=== PATIENT | male | born 1995 | race African-American/Black ===

== ENCOUNTER 2018-11-28 23:05 | Inpatient (IN) ==
[2018-11-28] MEDS ORDERED: MAGNESIUM SULFATE 1GM / D5W BAG IV ONE (23:09)
[2018-11-28] MEDS ORDERED: methylPREDNISolone 125 MG/2 ML VIAL ONE (23:09)
[2018-11-28] MEDS ORDERED: DOPamine 400MG / 250ML D5W IV ONE (23:15)
[2018-11-28] MEDS ORDERED: ALBUT/IPRATROP 3MG/0.5MG NEB 3 ML VIAL ONE (23:18)
[2018-11-28] MEDS ORDERED: PROPOFOL IV EMULSION 10 MG/ML 100 ML VIAL IV ONE (23:25)
[2018-11-28] MEDS ORDERED: RAPID SEQUENCE INDUCTION BAG ONE (23:26)
[2018-11-28] MEDS ORDERED: SODIUM CHLORIDE 0.9% 1000ML 1,000 ML IV SCH (23:30)
[2018-11-28 23:34] LABS: iSTAT Arterial Blood Gas HCO3 29 meg/L (19-24); iSTAT Arterial Blood Gas pCO2 > 115 mmHg (35-46); iSTAT Arterial Blood Gas pH 6.98 (7.35-7.45); iSTAT Carbon Dioxide 33 mEq/l (24-31); iSTAT Hematocrit 38 % (42-52); iSTAT Hemoglobin 12.9 g/dl (14.0-18.0); iSTAT Sodium 144 mEq/L (135-144)
[2018-11-28 23:38] LABS: Hematocrit (blood only) 40.9 % (42-52); Hemoglobin 13.4 g/dL (14.0-18.0); Mean Corpuscular Hgb Conc 32.8 g/dL (32-36); Mean Corpuscular Volume 88.3 fL (80-100); Mean Platelet Volume 10.9 fL (7.4-10.4); Platelet Count 166 K/uL (130-400); RDW Standard Deviation 42.1 fL (36.4-46.3); Red Blood Count 4.63 M/uL (4.7-6.1); White Blood Count 11.24 K/uL (4.8-10.8)
[2018-11-28] MEDS ORDERED: POTASSIUM CHLORIDE 10 MEQ / 100ML WTR IV ONE (23:45)
[2018-11-28 23:50] LABS: iSTAT Creatinine 2.1 mg/dl (0.6-1.3); iSTAT Hemoglobin 12.9 g/dl (14.0-18.0); iSTAT Ionized Calcium 1.7 mmol/l (1.12-1.32); iSTAT Potassium 3.3 mEq/L (3.3-5.0)
[2018-11-28 23:52] LABS: INR 1.3 (0.9-1.1); Partial Thromboplastin Ratio 0.8; Partial Thromboplastin Time 20.6 Seconds (21.0-31.0); Prothrombin Time 12.7 Seconds (9.0-12.0)
[2018-11-29 00:13] LABS: Alanine Aminotransferase 29 U/L (12-78); Albumin Globulin Ratio 1.1 (0.9-2); Alkaline Phosphatase 63 U/L (45-117); Aspartate Aminotransferase 57 U/L (15-37); BUN Creatinine Ratio 9.3 (10-20); Bilirubin,Total 0.5 mg/dl (0.2-1); Blood Urea Nitrogen 20 mg/dl (7-18); Calcium 13.5 mg/dl (8.5-10.1); Carbon Dioxide 25 mmol/L (21-32); Chloride 99 mmol/L (98-107); Creatine Kinase 470 U/L (39-308); Est GFR (African American) 49.1; Est GFR (Non-African American) 42.4; Globulin 2.7 gm/dl (2.5-4.0); Glucose 241 mg/dl (70-99); Magnesium 3.8 mg/dl (1.8-2.4); Potassium 3.5 mmol/L (3.5-5.1); Sodium 142 mmol/L (136-145); Total Protein 5.7 gm/dl (6.4-8.2); Troponin I < 0.015 ng/ml (0-0.045)
[2018-11-29 00:23] LABS: Amphetamines+Metham, Urine Neg (Neg); Barbiturates, Urine Neg (Neg); Benzodiazepine, Urine Neg (Neg); Cocaine, Urine Neg (Neg); MDMA (Ecstacy), Urine Neg (Neg); Methadone, Urine Neg (Neg); Opiate, Urine Neg (Neg); Phencyclidine, Urine Neg (Neg)
[2018-11-29 00:45] LABS: Basophils # (auto) 0.05 K/uL (0-0.2); Basophils % (auto) 0.4 %; Echinocytes 1+; Eosinophils # (auto) 0.51 K/uL (0-0.5); Eosinophils % (auto) 4.5 %; Immature Granulocytes # (auto) 0.31 K/uL (0.00-0.02); Immature Granulocytes % (auto) 2.8 %; Lymphocytes # (auto) 6.34 K/uL (1.2-3.4); Lymphocytes % (auto) 56.4 %; Monocytes # (auto) 0.75 K/uL (0.11-0.59); Monocytes % (auto) 6.7 %; Neutrophils # (auto) 3.28 K/uL (1.4-6.5); Neutrophils % (auto) 29.2 %
[2018-11-29] MEDS ORDERED: LORazepam 2 MG/ML VIAL (IM USE) ONE (00:49)
--- NOTE | 2018-11-29 01:22 | Procedure Note ---
Procedure Note Date of Service November 29, 2018 Procedure: RIGHT Femoral Central Line Cooling Catheter Placement Attending: Dr. Mera APC: Marc Hernandez PA-C Indication: Central Drug Administration, Poor Venous Access, Multiple Lab Draws Necessary, etc. Anesthesia: Lidocaine 1% Patient is status post cardiac arrest in the field and meets criteria for therapeutic hypothermia protocol. Patient with relatively labile blood pressures and need for venous cooling catheter placement in emergent fashion. No family present on arrival. Because of these indications, emergent consent was applied given the need for access for multiple medications and for a therapeutic hypothermia. A time-out was completed verifying correct patient, procedure, site, positioning, and implants(s) or special equipment if applicable. Patients RIGHT Groin was cleansed and draped in the typical sterile fashion using Chloraprep. The Femoral Vein and Femoral Artery were identified using ultrasound. The superficial tissue was anesthetized using 3.0 mL of 1% lidocaine without epinephrine under direct visualization with the ultrasound. After adequate anesthetization was achieved, the Femoral Vein was cannulated under direct ultrasound guidance using an introducer needle on a syringe. Good venous blood return was maintained prior to removal of syringe from introducer needle. Using Seldinger Technique, a guide wire was advanced through the introducer needle without resistance. The introducer needle was removed and ultrasound images were obtained of the guide wire within the Femoral Vein and saved to the patients medical record. A small incision was made in penetrating fashion at the guide wire insertion site utilizing an 11 blade scalpel. The dilator was advanced to the vessel without resistance. The dilator was exchanged for the Zoll 9.3 [place] triple lumen cooling catheter which was advanced into the vessel without resistance. The guide wire was removed intact from the catheter without issue. Claves were placed on each catheter tip with confirmation of good blood flow from each lumen. Each port was easily flushed with sterile saline. The catheter was placed at 35 cm and sutured in place. BioPatch was applied to the catheter and a sterile Tegaderm dressing was applied over the catheter with careful attention to sterility. Patient tolerated procedure well. No immediate complications were met. Images obtained are saved for permanent record Procedural Ultrasound Guidance: Procedure Date: 11/29/2018 Indication: Venous Access, Post arrest, Cooling catheter needed for therapeutic hypothermia. Attending: Dr. Mera APC: Marc Hernandez PA-C Artery AND Vein visualized: YES Compressible Vein: YES Guidewire or Short Catheter seen in vein prior to dilation: YES Line confirmed in Vein with ultrasound: YES Images obtained are saved for permanent record. Coding
[2018-11-29] MEDS ORDERED: ACETAMINOPHEN 1000 MG/100 ML IV IV PRN (01:35)
[2018-11-29] MEDS ORDERED: PROPOFOL 1,000 MG/100 ML VIAL IV PRN (01:35)
[2018-11-29] MEDS ORDERED: ICU PROTOCOL FOR HYPERGLYCEMIA PRN (01:35)
[2018-11-29] MEDS ORDERED: SODIUM CHLORIDE 0.9% 1000ML 1,000 ML IV SCH (01:35)
[2018-11-29] MEDS ORDERED: ALBUT/IPRATROP 3MG/0.5MG NEB 3 ML VIAL NEB PRN (01:35)
[2018-11-29] MEDS ORDERED: ONDANSETRON INJ 2 MG/ML 2 ML VIAL IV PRN (01:35)
[2018-11-29] MEDS ORDERED: MIDAZOLAM HCL 125 MG/250 ML BAG IV PRN (01:39)
[2018-11-29] MEDS ORDERED: fentaNYL DRIP 1,250 MCG/250 ML BAG IV PRN (01:39)
[2018-11-29] MEDS ORDERED: ARTIFICIAL TEARS OP OINT 3.5 GM TUBE OP PRN (01:39)
[2018-11-29] MEDS ORDERED: MEPERIDINE HCL 25 MG/ML CARP IV PRN (01:39)
--- NOTE | 2018-11-29 01:39 | Procedure Note ---
Procedure Note Date of Service November 29, 2018 Procedure: RIGHT Femoral Arterial Line Placement Attending: Dr. Mera APC: Marc Hernandez PA-C Indication: Monitoring on Pressors Anesthesia: Lidocaine 1% Patient presented status post cardiac arrest in the field. Requires arterial line to proceed with therapeutic hypothermia protocol. Patient with hypotension on arrival with labile blood pressures status post resuscitation. Requires multiple frequent blood draws as well as multiple frequent assessment of ABGs. Emergent consent implied without presence of POA at the time. A time-out was completed verifying correct patient, procedure, site, positioning, and implant(s) or special equipment if applicable. Patients RIGHT Groin was prepped and draped in the usual sterile fashion. Ultrasound guidance was used to aid in RIGHT Femoral Vein access. Brisk return of arterial blood was noted. Utilizing Seldinger technique, a guidewire was A 20g Arrow arterial line was advanced into the RIGHT femoral artery without resistance. Ultrasound confirms appropriate position in the artery. Arterial catheter was threaded over the guidewire and advanced into the vessel without resistance. The guide wire was removed intact from the catheter without issue. Arterial pulsatile blood was noted. The catheter was capped with primed a-line tubing. Pulsatile flow noted in the catheter. Good waveform was observed. Confirmation of placement with ultrasound. Images saved to medical record. BioPatch was applied to the area and sterile dressing was placed. The patient tolerated the procedure well. No immediate complications appreciated. Blood Loss: Minimal Complications: None Procedural Ultrasound Guidance: Procedure Date: 11/29/2018 Indication: Therapeutic Hypothermia, Close BP monitoring, Frequent Labs, Frequent ABGs. Attending: Dr. Mera APC: Marc Hernandez PA-C Artery Identified: YES Line confirmed in Artery with ultrasound: YES Complications: NONE Patient tolerated procedure: WELL Coding CPT Codes Tubes, Drains, and Vasc Access - Tubes, Drains, and Vasc Access: Insertion Catheter, Artery ([id number]) Tubes, Drains, and Vasc Access - Tubes, Drains, and Vasc Access: Ultrasonic Guide For Needle Placement ([id number])
--- NOTE | 2018-11-29 02:08 | History & Physical Report ---
Date of Service November 29, 2018 Assessment & Plan (1) Admitted to intensive care unit: Admitted to intensive care unit/status post successful resuscitation post cardiac arrest/acute respiratory failure with hypoxia and hypercapnia/on mechanically assisted ventilation- Patient was intubated by EMS in the field. Coded by ED team upon arrival. Admit to the ICU for further treatment. Consult remote broadcast technician Dr. Mera. Present on Admission?: Yes (2) Cardiac arrest with successful resuscitation: Cardiac arrest with successful resuscitation/acute respiratory failure with hypoxia and hypercapnia- In the field, patient was found to be in PEA, was intubated, received epinephrine 1 mg IV x3. Patient was found to be in severe respiratory acidosis: Initial ABG was pH 6.98, PCO2 greater than 115, PO2 313. Follow-up ABG showed a pH 7.27, PCO2 45 and PO2 in the 200s on vent settings AC 26/500/50% and PEEP of 5. Patient received several dosages of bicarbonate pushes, 3 L of normal saline, calcium IV, magnesium IV. Present on Admission?: Yes (3) Acute respiratory failure with hypoxia and hypercapnia: Patient was also given Solu-Medrol 25 mg IV in the ED, and will be continued on sign Medrol 60 mg IV every 6 hours. He received a continuous albuterol nebulizer while in the ED. Duonebs available every 2 hours as needed. Chest x-ray did not show any signs of aspiration pneumonia, and did show appropriate position of endotracheal tube. Present on Admission?: Yes (4) Acute kidney injury: Creatinine on POC labs 2.1, with confirmatory labs pending. Continue rehydration with normal saline. Present on Admission?: Yes (5) Hyperglycemia: POC glucose 247, with confirmatory pending. Check hemoglobin A1c Present on Admission?: Yes (6) Anemia: Hemoglobin upon admission 13.0. Will heme test stools, follow serially Present on Admission?: Yes (7) Asthma: Only no medical history is that of asthma and need for albuterol HFA that was used PRN. every 2 hours when necessary. Present on Admission?: Yes (8) On mechanically assisted ventilation: As noted above Present on Admission?: Yes History of Present Illness Chief Complaint: The patient is a 23-year-old male who reportedly was entering [facility], when he collapsed, and CPR was begun by police, until EMS arrived. Primary Care Provider: NO PCP The patient is a 23-year-old male with a past medical history of asthma, who had collapsed outside the entrance to [facility] earlier this evening. CPR was reportedly begun by police, until EMS arrived. EMS reports that the patient was found to be and PEA rhythm, he was intubated in the field, received 3 rounds of epinephrine 1 mg IV while undergoing CPR, did not receive any shocks, and was transported to the emergency department with advanced notice for [employer] [place]. Upon arrival in the ED, the patient was noted to have a pulse and blood pressure of 77/50'. He was coded at that time, underwent appropriate sequencing of medications, laboratories and imaging, and mechanical ventilation. He was then transported to the CT scanner, with CT of head, chest, abdomen and pelvis were all read as normal by [facility]. The patient was then transported to the ICU for ongoing care. The patient did not have return of consciousness, but did have ROSC. Allergies Allergy/AdvReac Type Severity Reaction Status Date / Time Unable to Assess Allergy Unverified 11/28/18 23:16 Home Medications Home Medications Medication Instructions Recorded Confirmed Type albuterol sulfate 1 - 2 puff INH DIRECTED PRN 11/28/18 11/28/18 History Past Med/Surg History Medical History No pertinent past medical history Family History Other No pertinent family history in first degree relatives Social History Preferred Language: Vietnamese Communication Ability: Unrespons. Emergency Veterinary Technician Required: No Beliefs That Will Affect Care: None Current Living Situation: Other Current Living Situation Comment: Apartment with [employer] Other Information That Helps Us Care for You: No Feels Safe at Home: Yes Smoking Status: Former smoker Do You Dip or Chew Tobacco: No Second Hand Exposure: No Tobacco Cessation Education Requested by Patient: No Hx Alcohol Use: Yes Hx Substance Use: No Review of Systems Review of Systems: Review of systems not able to be done to the patient's unresponsive state Physical Exam Physical Exam: The patient is unresponsive well developed and well nourished, normocephalic and atraumatic, intubated, bagged upon arrival, and then placed on ventilator. HEENT--PERRL, EOMI, mucous membranes and oropharynx dry. Neck--No JVD. No bruits. Thyroid normal, trachea midline, no adenopathy. Heart--tachycardic. Normal S1 and S2. No murmurs, rubs or gallops. Lungs--decreased breath sounds throughout. Abdomen--normal bowel sounds and soft. Nontender. Nondistended. Extremities--no cyanosis or clubbing. No edema. There are good distal pulses b/l. Dermatologic--normal skin turgor, normal color, no abnormal lymph nodes, no rash. Neurologic--cranial nerves II through XII grossly intact. Rheumatologic--limited exam Psychiatric--unresponsive and intubated. Results & Data Vital Signs (Past 12 Hours) Vital Signs Temp Pulse Pulse Resp BP BP Pulse Ox 11/29/18 00:25 85 160/100 H 98 11/29/18 00:24 84 22 151/108 H 99 11/29/18 00:23 86 20 151/108 H 99 11/29/18 00:21 85 160/106 H 99 11/29/18 00:19 84 165/107 H 98 11/29/18 00:17 85 157/110 H 98 11/29/18 00:15 85 161/107 H 98 11/29/18 00:13 85 164/107 H 98 11/29/18 00:11 85 181/108 H 98 11/29/18 00:09 86 173/110 H 98 11/29/18 00:07 99 11/28/18 23:50 20 11/28/18 23:46 105 H 182/109 H 99 11/28/18 23:42 109 H 190/119 H 99 11/28/18 23:39 105 H 153/123 H 99 11/28/18 23:38 115 H 198/133 H 100 11/28/18 23:36 119 H 208/124 H 99 11/28/18 23:34 122 H 185/130 H 96 11/28/18 23:32 125 H 227/126 H 100 11/28/18 23:30 127 H 209/133 H 100 11/28/18 23:28 131 H 221/142 H 100 11/28/18 23:27 132 H 198/117 H 100 11/28/18 23:24 132 H 205/124 H 99 11/28/18 23:22 129 H 195/119 H 99 11/28/18 23:20 137 H 181/104 H 98 11/28/18 23:19 142 H 212/116 H 98 11/28/18 23:18 147 H 219/120 H 99 11/28/18 23:16 114 H 59/33 L 11/28/18 23:15 131 H 28 H 95 11/28/18 23:12 126 H 41/28 L 11/28/18 23:09 103 H 65/36 L 93 11/28/18 23:05 97.0 F L 108 H 18 65/36 L 93 Laboratory Results Laboratory Results WBC 11.24 K/uL (4.8-10.8) H 11/28/18 23:23 RBC 4.63 M/uL (4.7-6.1) L 11/28/18 23:23 Hgb 13.4 g/dL (14.0-18.0) L 11/28/18 23:23 POC Hgb 12.9 g/dl (14.0-18.0) L 11/28/18 23:34 Hct 40.9 % (42-52) L 11/28/18 23:23 POC Hct 38 % (42-52) L 11/28/18 23:34 MCV 88.3 fL (80-100) 11/28/18 23:23 MCH 28.9 pg (25-34) 11/28/18 23:23 MCHC 32.8 g/dL (32-36) 11/28/18 23:23 RDW Std Deviation 42.1 fL (36.4-46.3) 11/28/18 23:23 RDW Coeff of Bobbi 13.0 % (11.5-14.5) 11/28/18 23:23 Plt Count 166 K/uL (130-400) 11/28/18 23:23 MPV 10.9 fL (7.4-10.4) H 11/28/18 23:23 Immature Gran % (Auto) 2.8 % 11/28/18 23:23 Neut % (Auto) 29.2 % 11/28/18 23:23 Lymph % (Auto) 56.4 % 11/28/18 23:23 Gila % (Auto) 6.7 % 11/28/18 23:23 Eos % (Auto) 4.5 % 11/28/18 23:23 Baso % (Auto) 0.4 % 11/28/18 23:23 Immature Gran # (Auto) 0.31 K/uL (0.00-0.02) H 11/28/18 23:23 Neut # (Auto) 3.28 K/uL (1.4-6.5) 11/28/18 23:23 Lymph # (Auto) 6.34 K/uL (1.2-3.4) H 11/28/18 23:23 Gila # (Auto) 0.75 K/uL (0.11-0.59) H 11/28/18 23:23 Eos # (Auto) 0.51 K/uL (0-0.5) H 11/28/18 23:23 Baso # (Auto) 0.05 K/uL (0-0.2) 11/28/18 23:23 Echinocytes 1+ 11/28/18 23:23 PT 12.7 Seconds (9.0-12.0) H 11/28/18 23:23 INR 1.3 (0.9-1.1) H 11/28/18 23:23 APTT 20.6 Seconds (21.0-31.0) L 11/28/18 23:23 PTT Ratio 0.8 11/28/18 23:23 POC pH 6.98 (7.35-7.45) L* 11/28/18 23:17 POC pCO2 > 115 mmHg (35-46) H 11/28/18 23:17 POC pO2 313 mmHg (80-95) H 11/28/18 23:17 POC HCO3 29 asuncion/L (19-24) H 11/28/18 23:17 POC Total CO2 33 mEq/l (24-31) H 11/28/18 23:17 POC Base Excess -3.0 asuncion/L (-9-1.8) 11/28/18 23:17 POC Sodium 139 mEq/L (135-144) 11/28/18 23:34 Sodium 142 mmol/L (136-145) 11/28/18 23:23 POC Potassium 3.3 mEq/L (3.3-5.0) 11/28/18 23:34 Potassium 3.5 mmol/L (3.5-5.1) 11/28/18 23:23 POC Chloride 98 mEq/L (101-112) L 11/28/18 23:34 Chloride 99 mmol/L (98-107) 11/28/18 23:23 Carbon Dioxide 25 mmol/L (21-32) 11/28/18 23:23 POC Total CO2 25 mEq/l (24-31) 11/28/18 23:34 Anion Gap 18.0 (3-11) H 11/28/18 23:23 POC Anion Gap 21.0 mmol/L (16-25) 11/28/18 23:34 POC BUN 21 mg/dl (7-18) H 11/28/18 23:34 BUN 20 mg/dl (7-18) H 11/28/18 23:23 Creatinine 2.14 mg/dl (0.6-1.4) H 11/28/18 23:23 POC Creatinine 2.1 mg/dl (0.6-1.3) H 11/28/18 23:34 Est Cr Clr Drug Dosing Not Reportable 11/28/18 23:23 Est GFR ( Amer) 49.1 11/28/18 23:23 Est GFR (Non-Af Amer) 42.4 11/28/18 23:23 BUN/Creatinine Ratio 9.3 (10-20) L 11/28/18 23:23 Glucose 241 mg/dl (70-99) H 11/28/18 23:23 POC Glucose (other) 247 mg/dl (70-99) H 11/28/18 23:34 Lactate 12.0 mmol/L (0.4-2.0) H* 11/28/18 23:23 Calcium 13.5 mg/dl (8.5-10.1) H* 11/28/18 23:23 POC Ioniz Calcium Sherif 1.70 mmol/l (1.12-1.32) H* 11/28/18 23:34 Ionized Calcium 0.99 mmol/L (1.12-1.32) L 11/29/18 00:43 Magnesium 3.8 mg/dl (1.8-2.4) H 11/28/18 23:23 Total Bilirubin 0.5 mg/dl (0.2-1) 11/28/18 23:23 AST 57 U/L (15-37) H 11/28/18 23:23 ALT 29 U/L (12-78) 11/28/18 23:23 Alkaline Phosphatase 63 U/L (45-117) 11/28/18 23:23 Total Creatine Kinase 470 U/L (39-308) H 11/28/18 23:23 Troponin I < 0.015 ng/ml (0-0.045) 11/28/18 23:23 Total Protein 5.7 gm/dl (6.4-8.2) L 11/28/18 23:23 Albumin 3.0 gm/dl (3.4-5.0) L 11/28/18 23:23 Globulin 2.7 gm/dl (2.5-4.0) 11/28/18 23:23 Albumin/Globulin Ratio 1.1 (0.9-2) 11/28/18 23:23 Lipase 61 U/L (73-393) L 11/28/18 23:23 Urine Opiates Screen Neg (Neg) 11/28/18 23:50 Ur Methadone, Qual Neg (Neg) 11/28/18 23:50 Urine Barbiturates Neg (Neg) 11/28/18 23:50 Ur Phencyclidine (PCP) Neg (Neg) 11/28/18 23:50 U Amphetamin/Meth Scrn Neg (Neg) 11/28/18 23:50 MDMA (Ecstasy) Screen Neg (Neg) 11/28/18 23:50 U Benzodiazepines Scrn Neg (Neg) 11/28/18 23:50 Ur Cocaine Metabolite Neg (Neg) 11/28/18 23:50 U Marijuana (THC) Screen Neg (Neg) 11/28/18 23:50 Ethyl Alcohol mg/dL 27.0 mg/dl (0-3) H 11/29/18 00:43 Blood Type O Positive 11/28/18 23:23 Antibody Screen NEGATIVE 11/28/18 23:23 Diagnostic Findings [facility] Patient: MANI HOPE (Male) Age: 23 MR #: [id number] Status: ER Date: 11/29/18 00:07 Slices: 67 History: S/P CARDIAC ARREST, MAYBE DRUG INDUCED Priors: Tech: Jerman Larios @ [phone] Exams: CT HEAD Accession Numbers: [id number] Preliminary Findings Only See Final Report For Complete Findings CT HEAD: No ICH, mass effect or edema. No evidence of acute cortical stroke. No midline shift or hydrocephalus. Visualized sinuses show mild scattered mucosal thickening and mastoid air cells are clear. Radiologist: Aayush Salas M.D. Study ready at 00:09 and initial results transmitted at 00:41 *This report constitutes a preliminary interpretation only. Non-acute findings felt to be unrelated to the clinical presentation may not be discussed in this report. The study will be interpreted and a final report will be generated by the local Radiologist the following shift. To reach the hospital radiology department call [phone]. If a discrepancy is found between the preliminary and final interpretations of this study, please notify us via our Client Portal at [email or web address], under QA Exams. You can also fax this report with a description of the discrepancy, or include the final report, to our daytime fax number [phone]. If faxing, please indicate the severity of discrepancy using one of the following categories: [ ] 1 - Agree/Informational [ ] 2 - Unlikely to Affect Management [ ] 3 - Possible Eventual Change of Management [ ] 4 - Probable Immediate Change of Management For all other patient related information, please fax us at [phone]. [facility] Patient: MANI HOPE (Male) Age: 23 MR #: [id number] Status: ER Date: 11/29/18 00:07 Slices: [phone] History: S/P CARDIAC ARREST, MAYBE DRUG INDUCED Priors: Tech: Jerman Larios @ [phone] Exams: CT ABDOMEN & PELVIS Without Contrast Accession Numbers: [id number] Preliminary Findings Only See Final Report For Complete Findings CT ABDOMEN & PELVIS Without Contrast: Fluid within nondistended loops of small bowel and within stomach without bowel wall thickening or surrounding inflammation can be normal or can be seen with gastroenteritis in the right clinical setting. No appendicitis, inflammatory changes of bowel or bowel obstruction. No free fluid. No free air. Aorta, liver, spleen, pancreas, gallbladder, and kidneys are unremarkable. Tip of transesophageal catheter is at the midportion of the stomach. Radiologist: Aayush Salas M.D. Study ready at 00:09 and initial results transmitted at 00:46 *This report constitutes a preliminary interpretation only. Non-acute findings felt to be unrelated to the clinical presentation may not be discussed in this report. The study will be interpreted and a final report will be generated by the local Radiologist the following shift. To reach the hospital radiology department call [phone]. If a discrepancy is found between the preliminary and final interpretations of this study, please notify us via our Client Portal at [email or web address], under QA Exams. You can also fax this report with a description of the discrepancy, or include the final report, to our daytime fax number [phone]. If faxing, please indicate the severity of discrepancy using one of the following categories: [ ] 1 - Agree/Informational [ ] 2 - Unlikely to Affect Management [ ] 3 - Possible Eventual Change of Management [ ] 4 - Probable Immediate Change of Management For all other patient related information, please fax us at [phone]. [id number] [facility] Patient: MANI HOPE (Male) Age: 23 MR #: [id number] Status: ER Date: 11/29/18 00:08 Slices: 454 History: S/P CARDIAC ARREST, MAYBE DRUG INDUCED Priors: Tech: Jerman Larios @ [phone] Exams: CT CHEST Without Contrast Accession Numbers: [id number] Preliminary Findings Only See Final Report For Complete Findings CT CHEST Without Contrast: Transesophageal catheter tip is at the midportion of the stomach. No pleural effusion or pneumothorax. No hilar or mediastinal enlargement. No cardiomegaly or pericardial effusion. No other acute or inflammatory disease. Radiologist: Aayush Salas M.D. Study ready at 00:10 and initial results transmitted at 00:50 *This report constitutes a preliminary interpretation only. Non-acute findings felt to be unrelated to the clinical presentation may not be discussed in this report. The study will be interpreted and a final report will be generated by the local Radiologist the following shift. To reach the hospital radiology department call [phone]. If a discrepancy is found between the preliminary and final interpretations of this study, please notify us via our Client Portal at [email or web address], under QA Exams. You can also fax this report with a description of the discrepancy, or include the final report, to our daytime fax number [phone]. If faxing, please indicate the severity of discrepancy using one of the following categories: [ ] 1 - Agree/Informational [ ] 2 - Unlikely to Affect Management [ ] 3 - Possible Eventual Change of Management [ ] 4 - Probable Immediate Change of Management For all other patient related information, please fax us at [phone]. Code Status & VTE Plan Code Status Full code VTE Prophylaxis Plan VTE Prophylaxis will be ordered: Yes Critical Care Time Critical Care Time: Yes Total Critical Care Time: 50 Total critical care time was 50 minutes PG Care Time/CCT Total # of Minutes Spent Total Time Spent with Patient: Total time spent is greater than 50% in coordination of care (as documented) at patient's floor/unit and/or counseling patient: Critical Care Time: Yes Total Critical Care Time: 50
[2018-11-29 02:09] LABS: Basophils # (auto) 0.03 K/uL (0-0.2); Basophils % (auto) 0.2 %; Eosinophils # (auto) 0.12 K/uL (0-0.5); Eosinophils % (auto) 0.7 %; Hematocrit (blood only) 38.5 % (42-52); Immature Granulocytes # (auto) 0.25 K/uL (0.00-0.02); Immature Granulocytes % (auto) 1.6 %; Lymphocytes # (auto) 1.91 K/uL (1.2-3.4); Lymphocytes % (auto) 11.9 %; Mean Corpuscular Hgb Conc 33.8 g/dL (32-36); Mean Platelet Volume 10.3 fL (7.4-10.4); Monocytes # (auto) 0.65 K/uL (0.11-0.59); Neutrophils # (auto) 13.15 K/uL (1.4-6.5); Neutrophils % (auto) 81.6 %; Platelet Count 185 K/uL (130-400); RDW Standard Deviation 40.2 fL (36.4-46.3); Red Blood Count 4.53 M/uL (4.7-6.1); White Blood Count 16.11 K/uL (4.8-10.8)
[2018-11-29 02:13] LABS: Base Excess ABG -11.9 mEq/L (-9-1.8); HCO3 ABG 15 mmol/L (19-24); Oxygen Saturation ABG 99.2 % (90-95); PCO2 ABG 35 mmHg (35-46); PO2 ABG 171 mm/Hg (80-95); pH ABG 7.23 (7.35-7.45)
[2018-11-29 02:15] LABS: Allen Test Pos (Pos)
[2018-11-29 02:21] LABS: INR 1.2 (0.9-1.1); Partial Thromboplastin Ratio 0.9; Partial Thromboplastin Time 24.8 Seconds (21.0-31.0); Prothrombin Time 11.9 Seconds (9.0-12.0)
[2018-11-29 02:32] LABS: Albumin Level 3.2 gm/dl (3.4-5.0); Alkaline Phosphatase 73 U/L (45-117); BUN Creatinine Ratio 13.3 (10-20); Bilirubin,Total 0.6 mg/dl (0.2-1); Blood Urea Nitrogen 19 mg/dl (7-18); Calcium 7.2 mg/dl (8.5-10.1); Carbon Dioxide 17 mmol/L (21-32); Chloride 109 mmol/L (98-107); Creatinine Clr Calc Pharmacy 93.4 ml/min; Glucose 154 mg/dl (70-99); Magnesium 2.1 mg/dl (1.8-2.4); Phosphorus 5.4 mg/dl (2.5-4.9); Potassium 3.2 mmol/L (3.5-5.1); Sodium 142 mmol/L (136-145)
--- NOTE | 2018-11-29 02:36 | Critical Care Consultation ---
Date of Consultation November 29, 2018 Assessment & Plan (1) Admitted to intensive care unit: Reason Critically Ill: 23-year-old male status post cardiac arrest with return of spontaneous circulation achieved in the field meeting criteria for therapeutic hypothermia. NEURO - * CAM ICU: Unable to assess secondary to current status. * Goals of care at this time to focus on neurological status. Therapeutic hypothermia in place. * Patient does elicit concerning exam findings with occasional decorticate posturing with painful stimulation. With some mild clonus of the bilateral upper extremities. Does appear to move all 4 extremities equally. * CT of the head negative. * Loaded with Keppra. Will treat with Versed with occasional boluses in an effort to minimize any seizure activity. * EEG ordered. CARDIAC/VASCULAR - * Cardiac arrest with return of spontaneous circulation: * Concerning for possible respiratory arrest resulting in cardiac arrest. * Found to be in PEA on EMS arrival. Received 3 rounds of epinephrine and high-quality CPR. * Currently not requiring vasoactive support. Would consider Levophed or epinephrine as first-line therapy in the recently stunned myocardium. * No known history of underlying cardiomyopathy, specifically hypertrophic cardiomyopathy. * Question excessive use of beta 1 agonist inciting possible dysrhythmia resulting in arrest. * Initial EKG without significant findings or concerns for infarction. * A.m. echocardiogram ordered. * Therapeutic hypothermia protocol in place. * Consult cardiology. * EKG: NSR@93bpm. Slight diffuse ST elevations noted of questionable significance. QTc 499. Will repeat/trend. * Monitor on telemetry. RESPIRATORY - * Acute respiratory failure with hypoxia and hypercapnia: * Initially with difficulty maintaining saturations and with difficulty bagging in the field. * Was with O2 saturations in the 50s which did improve significantly with albuterol treatment and IV steroids. * Question inciting asthma exacerbation with respiratory failure and subsequent cardiac arrest. * Will continue with IV steroids. * Albuterol as needed. * Remains intubated. * Serial ABGs. Adjustments as needed. GI/NUTRITION - * N.p.o. at this time * Prophylaxis: Ranitidine RENAL/LYTES - * Acute renal failure: * Likely secondary to hypoperfusion in the immediate postarrest patient. * Aggressive IV fluid resuscitation. * Improvement in creatinine and urine output at this time. * Hypokalemia: * Replace as needed. * High anion gap metabolic acidosis. * Has improved w/ decrease in serum Lactate. * Will continue to trend. * Less likely from other sources. * IVF: Normosol@125mL/hr - * No concerns * Carr in place - Strict I&Os. ENDO - * No h/o DM or Thyroid Dz * BSGs per unit protocol. ISS --> gtt per unit policy. HEME - * Stable H&H ID - * No concerns for infectious contribution at this time. * Trend fever curve. LINES/IV ACCESS - * PIVs x2 * RIGHT Femoral Triple Lumen Cooling Catheter * RIGHT Femoral A-line * ET Tube * Carr DVT PROPHYLAXIS - * Heparin * SCDs I have personally spent 90 minutes of critical care time in the direct management of this patient. This is a life/limb threatening event. This includes time spent evaluating patient, direct bedside care, chart review, placing orders, interpretation of diagnostic studies, discussion with consultants, patient, and family members, as well as other required patient management activities. This time is exclusive of all separately billable procedures, and teaching time and separate from and in addition to any other critical care service time. Thank you for allowing us to participate in the care of this patient. Please refer to my attending physician's documentation for any further recommendations. (2) Cardiac arrest with successful resuscitation: (3) Acute respiratory failure with hypoxia and hypercapnia: (4) ARF (acute renal failure): (5) Asthma: Supervising Physician Co-Signing Physician Notes The case discussed verbally with the team, I did not see the patient or evaluated him physically as the patient was life flighted to [facility]. History of Present Illness Attending Physician: Kvng Tellez MD HISTORY OF PRESENT ILLNESS LIMITED TO PATIENT'S CURRENT STATE OF EXTREMIS. Patient is a 23-year-old male brought to the emergency department via EMS status post cardiac arrest in the field. Apparently, the patient was standing in line at a local bar when he was complaining of shortness of breath. Police and EMS were summoned. Upon arrival, police did initially intervene and with pulse checks, he was found to be asystolic. He rested just before EMS arrived. Chest compressions were initiated. Upon assessment, the patient was found to be in PEA. Chest compressions were resumed and the patient was intubated. He received 3 rounds of epinephrine with return of spontaneous circulation. After intubation, patient's O2 saturations were found to be in the 50s. He was apparently tough to bag with little air movement. By the time he arrived in the emergency department, his O2 saturations had improved to the low 90s. While in the emergency department, the patient was found to be hypotensive with systolic blood pressures in the 70s. He received 1 round of IV epinephrine as well as calcium and bicarbonate. He was found to have a mixed respiratory and pulmonary acidosis. He initially was with concerns of acute renal failure with a creatinine greater than 2. His chest x-ray demonstrated no acute findings. He received Solu-Medrol and DuoNeb treatments as well. His O2 saturations improved greatly. Patient underwent emergent CT of the head, chest, and abdomen/pelvis. No acute intracranial findings were appreciated. RIGHT groin CVL and A-line were placed with the intent for initiation of therapeutic hypothermia. Upon arrival in the ICU, the patient's friends arrived. Mother had given consent for them to provide historical information and to receive information regarding his current status. She had spoken with emergency department case packer via phone. Friends confirm that he had been complaining of shortness of breath for some time. He had been using a rescue inhaler quite frequently. Another friend reports that she was with him today and he had been complaining of shortness of breath and using his albuterol inhaler multiple times. She did not think anything of it as this was not unusual for him. Per friends, he does drink socially, but does not use recreational drugs. Police did find pills of concern for recreational illicit drugs. When I did ask the female friend, she reports that "I can explain that." She reports that while he is not use drugs himself for "at least 2 years", he did have "Tabatha" as well as ecstasy for which he was intending to sell that evening. She is adamant that he did not use drugs himself. Allergies Allergy/AdvReac Type Severity Reaction Status Date / Time No Known Allergies Allergy Unverified 11/29/18 06:53 Home Medications Home Medications Medication Instructions Recorded Confirmed Type albuterol sulfate 1 - 2 puff INH DIRECTED PRN 11/28/18 11/28/18 History Patient History Medical History No pertinent past medical history Family History Other No pertinent family history in first degree relatives Social History Preferred Language: Romanian Communication Ability: Unrespons. Beliefs That Will Affect Care: None Current Living Situation: Other Current Living Situation Comment: Apartment with colleauges Feels Safe at Home: Yes Smoking Status: Former smoker Second Hand Exposure: No Hx Alcohol Use: Yes Hx Substance Use: No Review of Systems Review of Systems: Unobtainable due to cognitive status, Unobtainable due to e ndotracheal tube and Unobtainable due to reduced consciousness Physical Exam Physical Exam: VITAL SIGNS - Vital signs and nursing notes were reviewed. GENERAL - 23-year-old male appearing his stated age. Intubated. SKIN - Without rashes. HEAD - NC/AT. EYES - Pupils small and sluggish bilaterally. Sclera anicteric. Scleral edema noted. EARS - No deformities of external structures noted on gross examination bilaterally. NOSE - Midline and without cyanosis. No epistaxis or purulent drainage noted. MOUTH/OROPHARYNX - ET Tube in place. Without perioral cyanosis. Buccal mucosa pink and moist and without leukoplakia. NECK - Neck with FROM. Supple to palpation. No nuchal rigidity. LUNGS - Chest wall symmetric without accessory muscle use, intercostals retractions, or central cyanosis. Normal vesicular breath sounds CTA B/L. No wheezes, rales, or rhonchi appreciated. CARDIAC - RRR with S1/S2. No murmur, rubs, or gallops appreciated. ABDOMEN - Abdominal contour flat without pulsations or visible masses. BS normoactive all four quadrants. No tenderness, palpable masses, hepatosplenomegaly, or ascites noted. EXTREMITIES - No clubbing or peripheral cyanosis. No pretibial edema present. +3/5 radial and dorsalis pedis pulses palpated throughout. NEUROLOGIC -patient with mild clonus in the bilateral upper extremities. Does elicit decorticate-like posturing with sternal rub. Intermittent suckling of the ET Tube appreciated. No other focal neurological deficits appreciated. Results & Data Vital Signs (Past 12 Hours) Vital Signs Temp Pulse Pulse Resp BP BP Pulse Ox 11/29/18 01:20 93 H 20 97 11/29/18 00:41 84 20 144/101 H 100 06/28/19 00:39 85 20 152/96 H 99 11/29/18 00:35 83 20 147/96 H 99 11/29/18 00:31 83 20 152/98 H 100 11/29/18 00:27 83 20 158/99 H 98 11/29/18 00:25 85 160/100 H 98 11/29/18 00:24 84 22 151/108 H 99 11/29/18 00:23 86 20 151/108 H 99 11/29/18 00:21 85 160/106 H 99 11/29/18 00:19 84 165/107 H 98 11/29/18 00:17 85 157/110 H 98 11/29/18 00:15 85 161/107 H 98 11/29/18 00:13 85 164/107 H 98 11/29/18 00:11 85 181/108 H 98 11/29/18 00:09 86 173/110 H 98 11/29/18 00:07 99 11/28/18 23:50 20 11/28/18 23:46 105 H 182/109 H 99 11/28/18 23:42 109 H 190/119 H 99 11/28/18 23:39 105 H 153/123 H 99 11/28/18 23:38 115 H 198/133 H 100 11/28/18 23:36 119 H 208/124 H 99 11/28/18 23:34 122 H 185/130 H 96 11/28/18 23:32 125 H 227/126 H 100 11/28/18 23:30 127 H 209/133 H 100 11/28/18 23:28 131 H 221/142 H 100 11/28/18 23:27 132 H 198/117 H 100 11/28/18 23:24 132 H 205/124 H 99 11/28/18 23:22 129 H 195/119 H 99 11/28/18 23:20 137 H 181/104 H 98 11/28/18 23:19 142 H 212/116 H 98 11/28/18 23:18 147 H 219/120 H 99 11/28/18 23:16 114 H 59/33 L 11/28/18 23:15 131 H 28 H 95 11/28/18 23:12 126 H 41/28 L 11/28/18 23:09 103 H 65/36 L 93 11/28/18 23:05 36.1 C L 108 H 18 65/36 L 93 PG Care Time/CCT Critical Care Time: Yes Total Critical Care Time: 90
[2018-11-29] MEDS ORDERED: NOREPINEPHRINE BIT INJ 8 MG in DEXTROSE 5% 500 ML IV PRN (02:37)
[2018-11-29 02:40] LABS: Alanine Aminotransferase 38 U/L (12-78); Albumin Globulin Ratio 1.2 (0.9-2); Aspartate Aminotransferase 88 U/L (15-37); Creatine Kinase MB 9.3 ng/ml (0.5-3.6); Globulin 2.7 gm/dl (2.5-4.0); Total Protein 5.9 gm/dl (6.4-8.2)
[2018-11-29] MEDS ORDERED: POTASSIUM CHLORIDE / WTR 20 MEQ/100 ML PLCT IV ONE (03:13)
[2018-11-29] MEDS ORDERED: NORMOSOL-R 1,000 ML IV SCH (04:00)
[2018-11-29 05:50] LABS: Basophils # (auto) 0.01 K/uL (0-0.2); Basophils % (auto) 0.1 %; Eosinophils # (auto) 0.01 K/uL (0-0.5); Eosinophils % (auto) 0.1 %; Hematocrit (blood only) 39.4 % (42-52); Hemoglobin 13.3 g/dL (14.0-18.0); Immature Granulocytes # (auto) 0.05 K/uL (0.00-0.02); Immature Granulocytes % (auto) 0.4 %; Lymphocytes # (auto) 0.68 K/uL (1.2-3.4); Lymphocytes % (auto) 5.8 %; Mean Corpuscular Hgb Conc 33.8 g/dL (32-36); Mean Corpuscular Volume 83.8 fL (80-100); Monocytes # (auto) 0.38 K/uL (0.11-0.59); Monocytes % (auto) 3.2 %; Neutrophils # (auto) 10.61 K/uL (1.4-6.5); Neutrophils % (auto) 90.4 %; Platelet Count 147 K/uL (130-400); RDW Standard Deviation 39.6 fL (36.4-46.3); White Blood Count 11.74 K/uL (4.8-10.8)
[2018-11-29 05:55] LABS: Base Excess ABG -5.1 mEq/L (-9-1.8); HCO3 ABG 21 mmol/L (19-24); Oxygen Saturation ABG 98.7 % (90-95); PCO2 ABG 42 mmHg (35-46); PO2 ABG 132 mm/Hg (80-95); pH ABG 7.32 (7.35-7.45)
[2018-11-29 06:00] LABS: Estimated Average Glucose 120 mg/dl; Hemoglobin A1C 5.8 % (4.5-5.6)
[2018-11-29] MEDS ORDERED: methylPREDNISolone 60 MG in SYRINGE 0 ML IV SCH (06:00)
[2018-11-29 06:05] LABS: Allen Test Pos (Pos)
[2018-11-29 06:15] LABS: INR 1.3 (0.9-1.1); Partial Thromboplastin Time 25.9 Seconds (21.0-31.0)
--- NOTE | 2018-11-29 06:19 | Ultrasound Report ---
US venous doppler LE BI HISTORY: Pain. Edema. eval dvt COMPARISON STUDY: None. FINDINGS: There is normal compressibility, flow, and augmentation within the bilateral lower extremit y deep venous systems. IMPRESSION: No DVT within the right or left lower extremity. The above report was generated using voice recognition software. It may contain grammatical, syntax or spelling errors. Electronically signed by: Emmett Hooper M.D. 11/29/2018 6:18 AM
--- NOTE | 2018-11-29 06:37 | XRay Report ---
XR chest 1V portable CLINICAL HISTORY: Chest Pain COMPARISON STUDY: No previous studies for comparison. FINDINGS: The tip of the endotracheal tube is 4.4 cm above the bernie. Lung volumes are normal. Lungs are clear. There is no pneumothorax or pleural effusion. Cardiac size is normal. Mediastinal contour s are normal. There is no evidence for pulmonary edema. IMPRESSION: 1. Tip of endotracheal tube 4.4 cm above the bernie. 2. No acute cardiopulmonary findings. Electronically signed by: Sohan Haro M.D. 11/29/2018 6:36 AM
[2018-11-29 06:46] LABS: BUN Creatinine Ratio 15.3 (10-20); Calcium 6.8 mg/dl (8.5-10.1); Creatinine Clr Calc Pharmacy 91.5 ml/min; Est GFR (African American) 90.6; Est GFR (Non-African American) 78.2; Magnesium 1.8 mg/dl (1.8-2.4); Phosphorus 3.2 mg/dl (2.5-4.9); Potassium 3.4 mmol/L (3.5-5.1)
--- NOTE | 2018-11-29 06:58 | CT Scan Report ---
CT chest wo con CLINICAL HISTORY: 23 years-old Male presenting with Pt c/o cardiac arrest, possibly drug-induced. TECHNIQUE: Multidetector CT imaging of the chest was performed without the use of intravenous contras t. IV contrast: None. One or more dose lowering techniques were used consistent with the principles o f ALARA (as low as reasonably achievable), including automatic exposure control, mA or kV adjustment to individual patient size, and/or use of iterative reconstruction. COMPARISON: Chest x-ray from earlier today. CT DOSE (mGy.cm): The estimated cumulative dose is 1272.23. FINDINGS: Nick Setter topogram: Unremarkable. Image quality is degraded by positioning of the arms at the sides. This only mildly negatively affect s diagnostic sensitivity of the exam. Soft tissues: Endotracheal tube terminates in the lower thoracic trachea. A nasogastric tube descends below the diaphragm terminating beyond the [id number]. No axillary, supraclavicular, or mediastin al lymphadenopathy. Evaluation of the lilo limited without intravenous contrast. Normal aorta. Normal heart size. No pericardial or pleural effusion. Esophageal distention with gas. Upper abdomen normal . Lungs and airways: No pneumothorax. Minimal debris in the lower trachea and mainstem bronchi orifices . Mild diffuse upper lobe and more significant moderate to severe lower lobe bronchial wall thickenin g. Subsegmental endobronchial debris in the lower lobes. Pulmonary arteries are not significantly enl arged relative to adjacent bronchi. No interlobular septal thickening. No focal infiltrate or nodule. Musculoskeletal: Normal osseous structures. IMPRESSION: Image quality is degraded by positioning of the arms at the sides. This only mildly negatively affect s diagnostic sensitivity of the exam. 1. Extensive bronchial wall thickening most severe in the lower lobes with subsegmental endobronchia l debris. This could suggest aspiration or reactive airway change in the setting of inhalational inju ry. No focal consolidation/infiltrate. 2. Appropriately positioned tubes. Electronically signed by: Rodrigo Tierney M.D. 11/29/2018 6:56 AM
--- NOTE | 2018-11-29 07:00 | CT Scan Report ---
CT OF THE HEAD WITHOUT CONTRAST CLINICAL HISTORY: Pt c/o cardiac arrest COMPARISON STUDY: No previous studies for comparison. TECHNIQUE: Helical axial images of the head were obtained without IV contrast. Automated exposure con trol was utilized for the study. A dose lowering technique was utilized adhering to the principles o f ALARA. FINDINGS: No acute intracranial hemorrhage, midline shift or mass effect is present. This exam is mod erately compromised by motion artifact. There is fullness at the level of the foramen magnum. There a re no extra-axial collections. There is apparent sulcal effacement. Ngo-white differentiation is pre sent but appears somewhat diminished. There are no findings to suggest acute dural sinus thrombosis o r acute territorial infarct. There is no calvarial fracture. Endotracheal and nasogastric tubes are i althea. IMPRESSION: 1. No acute intracranial hemorrhage. 2. Sulcal effacement, fullness at the level the foramen magnum and partial loss of ngo-white differe ntiation which raise the possibility of cerebral edema seen in the setting of hypoxic-injury brain in jury. Discussed with Marc Hernandez at time of dictation. Electronically signed by: Sohan Haro M.D. 11/29/2018 6:59 AM
[2018-11-29] MEDS ORDERED: PERFLUTREN LIPID MICROSPHERE (DEFINITY) IV ONE (07:01)
--- NOTE | 2018-11-29 07:05 | CT Scan Report ---
CT OF THE ABDOMEN AND PELVIS WITHOUT CONTRAST CLINICAL HISTORY: Cardiac arrest. COMPARISON STUDY: No previous studies for comparison. TECHNIQUE: Axial images of the abdomen and pelvis were obtained without IV contrast. Images were revi ewed in the axial, sagittal, and coronal planes. Automated exposure control was utilized for the arian dy. A dose lowering technique was utilized adhering to the principles of ALARA. FINDINGS: Please note that the chest CT will be reported separately. No pneumatosis, free air or port al venous gas is present. Tip of nasogastric tube is within the body of the stomach. Evaluation of th e abdomen and pelvis is suboptimal on this unenhanced exam. A Carr balloon is present within the baylee dder. There is a rectal catheter. There is no evidence for a bowel obstruction. Small bowel is mildly dilated and fluid-filled. No transition point is identified. Unenhanced images of the liver, spleen, adrenal glands, kidneys and pancreas are normal. There is no biliary or pancreatic ductal dilatation . There is no free fluid. No lymphadenopathy is identified. IMPRESSION: 1. Mildly dilated fluid-filled small bowel without transition point identified. The findings are nons pecific but could be seen in the setting of an enteritis. A bowel obstruction is considered less like ly. 2. No pneumatosis, free air or portal venous gas. 3. Exam compromised given the absence of IV contrast and motion artifact. Electronically signed by: Sohan Haro M.D. 11/29/2018 7:03 AM
--- NOTE | 2018-11-29 07:27 | Family Medicine Progress Note ---
Date of Service November 29, 2018 Assessment & Plan (1) Admitted to intensive care unit: (2) Cardiac arrest with successful resuscitation: (3) Acute respiratory failure with hypoxia and hypercapnia: (4) ARF (acute renal failure): (5) Asthma: Results & Data Vital Signs (Past 12 Hours) Vital Signs Temp Temp Temp Pulse Pulse Resp BP 11/29/18 06:00 32 C L 32 C L 57 L 18 11/29/18 05:00 32 C L 32 C L 64 18 11/29/18 04:30 18 11/29/18 04:05 68 20 11/29/18 04:00 32.1 C L 32.1 C L 73 20 11/29/18 03:00 32 C L 32 C L 73 20 11/29/18 02:00 34 C L 33 C L 33 C L 83 95 H 11/29/18 01:35 93 H 11/29/18 01:20 93 H 20 11/29/18 01:15 34 C L 34 C L 95 H 11/29/18 00:41 84 20 11/29/18 00:39 85 20 11/29/18 00:35 83 20 11/29/18 00:31 83 20 11/29/18 00:27 83 20 11/29/18 00:25 85 160/100 H 11/29/18 00:24 84 22 11/29/18 00:23 86 20 151/108 H 11/29/18 00:21 85 160/106 H 11/29/18 00:19 84 165/107 H 11/29/18 00:17 85 157/110 H 11/29/18 00:15 85 161/107 H 11/29/18 00:13 85 164/107 H 11/29/18 00:11 85 181/108 H 11/29/18 00:09 86 173/110 H 11/29/18 00:07 11/28/18 23:50 20 11/28/18 23:46 105 H 182/109 H 11/28/18 23:42 109 H 190/119 H 11/28/18 23:39 105 H 153/123 H 11/28/18 23:38 115 H 198/133 H 11/28/18 23:36 119 H 208/124 H 11/28/18 23:34 122 H 185/130 H 11/28/18 23:32 125 H 227/126 H 11/28/18 23:30 127 H 209/133 H 11/28/18 23:28 131 H 221/142 H 11/28/18 23:27 132 H 198/117 H 11/28/18 23:24 132 H 205/124 H 11/28/18 23:22 129 H 195/119 H 11/28/18 23:20 137 H 181/104 H 11/28/18 23:19 142 H 212/116 H 11/28/18 23:18 147 H 219/120 H 11/28/18 23:16 114 H 59/33 L 11/28/18 23:15 131 H 28 H 11/28/18 23:12 126 H 41/28 L 11/28/18 23:09 103 H 65/36 L 11/28/18 23:05 36.1 C L 108 H 18 65/36 L BP BP Pulse Ox Pulse Ox 11/29/18 06:00 145/69 H 122/70 100 11/29/18 05:00 125/70 116/66 100 11/29/18 04:30 11/29/18 04:05 100 11/29/18 04:00 141/85 H 131/74 100 11/29/18 03:00 128/67 114/64 100 11/29/18 02:00 132/74 160/99 H 100 11/29/18 01:35 100 11/29/18 01:20 97 11/29/18 01:15 168/83 H 160/99 H 100 11/29/18 00:41 144/101 H 100 11/29/18 00:39 152/96 H 99 11/29/18 00:35 147/96 H 99 11/29/18 00:31 152/98 H 100 11/29/18 00:27 158/99 H 98 11/29/18 00:25 98 11/29/18 00:24 151/108 H 99 11/29/18 00:23 99 11/29/18 00:21 99 11/29/18 00:19 98 11/29/18 00:17 98 11/29/18 00:15 98 11/29/18 00:13 98 11/29/18 00:11 98 11/29/18 00:09 98 11/29/18 00:07 99 11/28/18 23:50 11/28/18 23:46 99 11/28/18 23:42 99 11/28/18 23:39 99 11/28/18 23:38 100 11/28/18 23:36 99 11/28/18 23:34 96 11/28/18 23:32 100 11/28/18 23:30 100 11/28/18 23:28 100 11/28/18 23:27 100 11/28/18 23:24 99 11/28/18 23:22 99 11/28/18 23:20 98 11/28/18 23:19 98 11/28/18 23:18 99 11/28/18 23:16 11/28/18 23:15 95 11/28/18 23:12 11/28/18 23:09 93 11/28/18 23:05 93 PG Care Time/CCT Total # of Minutes Spent Total Time Spent with Patient: Total time spent is greater than 50% in coordination of care (as documented) at patient's floor/unit and/or counseling patient:
--- NOTE | 2018-11-29 07:32 | XRay Report ---
XR chest 1V portable CLINICAL HISTORY: 23 years-old Male presenting with s/p arrest. TECHNIQUE: Portable upright AP view of the chest was obtained. COMPARISON: 11/28/2018. FINDINGS: Endotracheal tube position in the midthoracic trachea. Nasogastric tube descends below the diaphragm, side hole within the gastric lumen. A catheter projects over the inferior cavoatrial junction likely within the IVC. Several overlying external leads as well as a defibrillator pad. Cardiac mediastinal silhouette normal. No focal opacity. No large effusion or pneumothorax. Osseous s tructures normal. Upper abdomen normal. IMPRESSION: 1. Appropriately positioned lines and tubes. 2. No convincing evidence of acute cardiopulmonary disease. Electronically signed by: Rodrigo Tierney M.D. 11/29/2018 7:31 AM
[2018-11-29] MEDS: POTASSIUM CHLORIDE / WTR 20 MEQ/100 ML PLCT IV SCH ×2 (07:49→10:19)
--- NOTE | 2018-11-29 08:05 | Critical Care Progress Note ---
Date of Service November 29, 2018 Assessment & Plan (1) Ascending aortic dissection: Transfer to tertiary care. (2) ARF (acute renal failure): (3) Cardiac arrest with successful resuscitation: (4) Acute respiratory failure with hypoxia and hypercapnia: Subjective Patient's family did arrive just after 6 AM. I did meet with family at bedside and explained entire situation. Had a lengthy discussion regarding goals of care at this point as well as current treatment plan. They are comfortable with current plan at this time. I was approached by a.m. lead based paint technician who was concerned that she witnessed an aortic flap while performing bedside echocardiogram. She was concern for possible dissection. CTA of the chest had been ordered prior to this. I did reach out to radiologist and we did change imaging studies to CTA while pending formal echo read. CT of the head was ordered as well as morning CT reads were concerning for possible early cerebral edema. Orders were placed for CTA. I was then contacted by continuous drier helper who was able to view images at home which were concerning for acute a sending aortic dissection with flap. At this point, his recommendation was for transfer to tertiary care facility for higher level care, specifically CT surgery. I did relay this information to the family. They are comfortable with transfer to higher level care and agree with transfer to [facility]. I did reach out to [facility] and spoke with captain airline pilot as well as cardiothoracic surgeon. Patient was accepted in transfer. He will be transferred emergently via [facility]. Throughout his stay, the patient remained hemodynamically stable. His blood pressures were in the 1 teens to 120s systolically throughout the night. He remained with good dorsalis pedis pulses bilaterally. Pulse ox remained in the high 90s to 100. He has not required pressors. He is sedated on fentanyl and Versed. A.m. EEG pending. Patient be transferred in the interim. I have personally spent 90 minutes of critical care time in the direct management of this patient. This is a life/limb threatening event. This includes time spent evaluating patient, direct bedside care, chart review, placing orders, interpretation of diagnostic studies, discussion with consultants, patient, and family members, as well as other required patient management activities. This time is exclusive of all separately billable procedures, and teaching time and separate from and in addition to any other critical care service time. Results & Data Vital Signs (Past 12 Hours) Vital Signs Temp Temp Temp Pulse Pulse Resp BP 11/29/18 06:00 32 C L 32 C L 57 L 18 11/29/18 05:00 32 C L 32 C L 64 18 11/29/18 04:30 18 11/29/18 04:05 68 20 11/29/18 04:00 32.1 C L 32.1 C L 73 20 11/29/18 03:00 32 C L 32 C L 73 20 11/29/18 02:00 34 C L 33 C L 33 C L 83 95 H 20 11/29/18 01:35 93 H 11/29/18 01:20 93 H 20 11/29/18 01:15 34 C L 34 C L 95 H 20 11/29/18 00:41 84 20 11/29/18 00:39 85 20 11/29/18 00:35 83 11/29/18 00:31 83 20 11/29/18 00:27 83 20 11/29/18 00:25 85 160/100 H 11/29/18 00:24 84 11/29/18 00:23 86 20 151/108 H 11/29/18 00:21 85 160/106 H 11/29/18 00:19 84 165/107 H 11/29/18 00:17 85 157/110 H 11/29/18 00:15 85 161/107 H 11/29/18 00:13 85 164/107 H 11/29/18 00:11 85 181/108 H 11/29/18 00:09 86 173/110 H 11/29/18 00:07 11/28/18 23:50 20 11/28/18 23:46 105 H 182/109 H 11/28/18 23:42 109 H 190/119 H 11/28/18 23:39 105 H 153/123 H 11/28/18 23:38 115 H 198/133 H 11/28/18 23:36 119 H 208/124 H 11/28/18 23:34 122 H 185/130 H 11/28/18 23:32 125 H 227/126 H 11/28/18 23:30 127 H 209/133 H 11/28/18 23:28 131 H 221/142 H 11/28/18 23:27 132 H 198/117 H 11/28/18 23:24 132 H 205/124 H 11/28/18 23:22 129 H 195/119 H 11/28/18 23:20 137 H 181/104 H 11/28/18 23:19 142 H 212/116 H 11/28/18 23:18 147 H 219/120 H 11/28/18 23:16 114 H 59/33 L 11/28/18 23:15 131 H 28 H 11/28/18 23:12 126 H 41/28 L 11/28/18 23:09 103 H 65/36 L 11/28/18 23:05 36.1 C L 108 H 18 65/36 L BP BP Pulse Ox Pulse Ox 11/29/18 06:00 145/69 H 122/70 100 11/29/18 05:00 125/70 116/66 100 11/29/18 04:30 11/29/18 04:05 100 11/29/18 04:00 141/85 H 131/74 100 11/29/18 03:00 128/67 114/64 100 11/29/18 02:00 132/74 160/99 H 100 11/29/18 01:35 100 11/29/18 01:20 97 11/29/18 01:15 168/83 H 160/99 H 100 11/29/18 00:41 144/101 H 100 11/29/18 00:39 152/96 H 99 11/29/18 00:35 147/96 H 99 11/29/18 00:31 152/98 H 100 11/29/18 00:27 158/99 H 98 11/29/18 00:25 98 11/29/18 00:24 151/108 H 99 11/29/18 00:23 99 11/29/18 00:21 99 11/29/18 00:19 98 11/29/18 00:17 98 11/29/18 00:15 98 11/29/18 00:13 98 11/29/18 00:11 98 11/29/18 00:09 98 11/29/18 00:07 99 11/28/18 23:50 11/28/18 23:46 99 11/28/18 23:42 99 11/28/18 23:39 99 11/28/18 23:38 100 11/28/18 23:36 99 11/28/18 23:34 96 11/28/18 23:32 100 11/28/18 23:30 100 11/28/18 23:28 100 11/28/18 23:27 100 11/28/18 23:24 99 11/28/18 23:22 99 11/28/18 23:20 98 11/28/18 23:19 98 11/28/18 23:18 99 11/28/18 23:16 11/28/18 23:15 95 11/28/18 23:12 11/28/18 23:09 93 11/28/18 23:05 93 PG Care Time/CCT Critical Care Time: Yes Total Critical Care Time: 90 (1) ARF (acute renal failure) Acute renal failure type: unspecified Qualified Code(s): N17.9 - Acute kidney failure, unspecified
--- NOTE | 2018-11-29 08:21 | Emergency Department Note ---
Entered by Nancy Kelley acting as a scribe for Mj Manuel MD History of Present Illness General Chief complaint: Cardiac Arrest/CPR Stated complaint: POST CARDIAC ARREST Time Seen by Provider: 11/28/18 23:19 Source: EMS Mode of arrival: ambulatory History of Present Illness Provider complaint: Cardiac arrest Onset (ago): hour(s) less than 1 Location: chest Pain Consistency: + now resolved Relieved By: + other Associated symptoms: + chest pain, + seizure and + shortness of breath; no nausea/vomiting Treatments prior to arrival: other (three epinephrine, CPR, intubation) The patient is a 23 y/o male who presents to the emergency department for evaluation following cardiac arrest prior to arrival. EMS reports the patient showed up outside of [facility] where he became short of breath and had chest pain, staff called 911. They state that police arrived to the patient collapsed and seizing. Police noted they patient was not breathing and began CPR. EMS states that they continued CPR for 15 minutes and administer three epinephrine before the return of his pulse. They report an AED was not used and no shock was administered. EMS report the patient was intubated in route. They stated that blue pills found to be ecstasy and foil wrapped acid were found in the patients wallet. EMS notes that the patient was down for roughly 11 minutes. EMS stated a blood pressure of 65/36 in the ambulance. EMS denies any vomiting. HPI and ROS limited due to patient being unconscious. Home Medications Home Medications Medication Instructions Recorded Confirmed Type albuterol sulfate 1 - 2 puff INH DIRECTED PRN 11/28/18 11/28/18 History Allergies Allergy/AdvReac Type Severity Reaction Status Date / Time No Known Allergies Allergy Unverified 11/29/18 06:53 Past Med/Surg History Medical History No pertinent past medical history Family History Other No pertinent family history in first degree relatives Social History Preferred Language: Brazilian Communication Ability: Unrespons. Chicken Catcher Required: No Beliefs That Will Affect Care: None Current Living Situation: Other Current Living Situation Comment: Apartment with colleauges Other Information That Helps Us Care for You: No Feels Safe at Home: Yes Smoking Status: Former smoker Do You Dip or Chew Tobacco: No Second Hand Exposure: No Tobacco Cessation Education Requested by Patient: No Hx Alcohol Use: Yes Hx Substance Use: No Review of Systems HPI and ROS are limited secondary to patient being unconscious. Physical Exam Vital Signs Vital Signs - 24 hr 11/28/18 23:05 11/28/18 23:09 11/28/18 23:12 Temperature 36.1 C L Temperature Source Rectal Sepsis Recent Fever Within 48 Hours No Sepsis New/Unexplained Change in Mental Status No Sepsis Action Taken by Nursing No Action Required End-Tidal CO2 90 Pulse Rate 108 H 103 H 126 H Pulse Rate from SpO2 Sensor 80 Pulse Rhythm Regular Pulse Strength Normal Respiratory Rate 18 Respiratory Effort / Characteristics Mechanically Ventilated Respiratory Depth Normal Respiratory Pattern Regular Blood Pressure 65/36 L 65/36 L 41/28 L Blood Pressure Mean 45 45 32 Blood Pressure Position Lying Pulse Oximetry 93 93 Oxygen Delivery Method Mechanical Vent Fraction of Inspired Oxygen 11/28/18 23:15 11/28/18 23:16 11/28/18 23:18 Temperature Temperature Source Sepsis Recent Fever Within 48 Hours Sepsis New/Unexplained Change in Mental Status Sepsis Action Taken by Nursing End-Tidal CO2 64 78 96 Pulse Rate 131 H 114 H 147 H Pulse Rate from SpO2 Sensor 148 H Pulse Rhythm Pulse Strength Respiratory Rate 28 H Respiratory Effort / Characteristics Respiratory Depth Respiratory Pattern Blood Pressure 59/33 L 219/120 H Blood Pressure Mean 41 153 Blood Pressure Position Pulse Oximetry 95 99 Oxygen Delivery Method Fraction of Inspired Oxygen 60 11/28/18 23:19 11/28/18 23:20 11/28/18 23:22 Temperature Temperature Source Sepsis Recent Fever Within 48 Hours Sepsis New/Unexplained Change in Mental Status Sepsis Action Taken by Nursing End-Tidal CO2 87 83 54 Pulse Rate 142 H 137 H 129 H Pulse Rate from SpO2 Sensor 141 H 137 H 131 H Pulse Rhythm Pulse Strength Respiratory Rate Respiratory Effort / Characteristics Respiratory Depth Respiratory Pattern Blood Pressure 212/116 H 181/104 H 195/119 H Blood Pressure Mean 148 129 144 Blood Pressure Position Pulse Oximetry 98 98 99 Oxygen Delivery Method Fraction of Inspired Oxygen 40 11/28/18 23:24 11/28/18 23:27 11/28/18 23:28 Temperature Temperature Source Sepsis Recent Fever Within 48 Hours Sepsis New/Unexplained Change in Mental Status Sepsis Action Taken by Nursing End-Tidal CO2 61 40 42 Pulse Rate 132 H 132 H 131 H Pulse Rate from SpO2 Sensor 131 H 134 H 132 H Pulse Rhythm Pulse Strength Respiratory Rate Respiratory Effort / Characteristics Respiratory Depth Respiratory Pattern Blood Pressure 205/124 H 198/117 H 221/142 H Blood Pressure Mean 151 144 168 Blood Pressure Position Pulse Oximetry 99 100 100 Oxygen Delivery Method Fraction of Inspired Oxygen 11/28/18 23:30 11/28/18 23:32 11/28/18 23:34 Temperature Temperature Source Sepsis Recent Fever Within 48 Hours Sepsis New/Unexplained Change in Mental Status Sepsis Action Taken by Nursing End-Tidal CO2 40 37 36 Pulse Rate 127 H 125 H 122 H Pulse Rate from SpO2 Sensor 129 H 125 H 122 H Pulse Rhythm Pulse Strength Respiratory Rate Respiratory Effort / Characteristics Respiratory Depth Respiratory Pattern Blood Pressure 209/133 H 227/126 H 185/130 H Blood Pressure Mean 158 159 148 Blood Pressure Position Pulse Oximetry 100 100 96 Oxygen Delivery Method Fraction of Inspired Oxygen 11/28/18 23:36 11/28/18 23:38 11/28/18 23:39 Temperature Temperature Source Sepsis Recent Fever Within 48 Hours Sepsis New/Unexplained Change in Mental Status Sepsis Action Taken by Nursing End-Tidal CO2 29 29 30 Pulse Rate 119 H 115 H 105 H Pulse Rate from SpO2 Sensor 118 H 116 H 113 H Pulse Rhythm Pulse Strength Respiratory Rate Respiratory Effort / Characteristics Respiratory Depth Respiratory Pattern Blood Pressure 208/124 H 198/133 H 153/123 H Blood Pressure Mean 152 154 133 Blood Pressure Position Pulse Oximetry 99 100 99 Oxygen Delivery Method Fraction of Inspired Oxygen 11/28/18 23:42 11/28/18 23:46 11/28/18 23:50 Temperature Temperature Source Sepsis Recent Fever Within 48 Hours Sepsis New/Unexplained Change in Mental Status Sepsis Action Taken by Nursing End-Tidal CO2 28 26 Pulse Rate 109 H 105 H Pulse Rate from SpO2 Sensor 107 H 105 H Pulse Rhythm Pulse Strength Respiratory Rate 20 Respiratory Effort / Characteristics Respiratory Depth Respiratory Pattern Blood Pressure 190/119 H 182/109 H Blood Pressure Mean 142 133 Blood Pressure Position Pulse Oximetry 99 99 Oxygen Delivery Method Fraction of Inspired Oxygen 40 11/29/18 00:07 11/29/18 00:09 11/29/18 00:11 Temperature Temperature Source Sepsis Recent Fever Within 48 Hours Sepsis New/Unexplained Change in Mental Status Sepsis Action Taken by Nursing End-Tidal CO2 36 38 37 Pulse Rate 86 85 Pulse Rate from SpO2 Sensor 95 H 86 85 Pulse Rhythm Pulse Strength Respiratory Rate Respiratory Effort / Characteristics Respiratory Depth Respiratory Pattern Blood Pressure 173/110 H 181/108 H Blood Pressure Mean 131 132 Blood Pressure Position Pulse Oximetry 99 98 98 Oxygen Delivery Method Fraction of Inspired Oxygen 11/29/18 00:13 Temperature Temperature Source Sepsis Recent Fever Within 48 Hours Sepsis New/Unexplained Change in Mental Status Sepsis Action Taken by Nursing End-Tidal CO2 43 Pulse Rate 85 Pulse Rate from SpO2 Sensor 85 Pulse Rhythm Pulse Strength Respiratory Rate Respiratory Effort / Characteristics Respiratory Depth Respiratory Pattern Blood Pressure 164/107 H Blood Pressure Mean 126 Blood Pressure Position Pulse Oximetry 98 Oxygen Delivery Method Fraction of Inspired Oxygen GENERAL: Obtuned, in acute distress HENT: Normocephalic, atraumatic. Oropharynx unremarkable. ET tube in place. EYES: Normal conjunctiva. Sclera non-icteric. NECK: Supple. No nuchal rigidity. FROM. No JVD. RESPIRATORY: Clear to auscultation. Large amount of bilateral air trapping and wheezing in the lungs CARDIAC: Regular rate, normal rhythm. Extremities warm and well perfused. Pulses equal. ABDOMEN: Soft, non-distended. No tenderness to palpation. No rebound or guarding. No masses. RECTAL: Deferred. MUSCULOSKELETAL: Chest examination reveals no tenderness. The back is symmetrical on inspection without obvious abnormality. There is no CVA tenderness to palpation. No joint edema. LOWER EXTREMITIES: Calves are equal size bilaterally and non-tender. No edema. No discoloration. NEURO: Clenches fists bilaterally. No response to painful stimuli. SKIN: No rash or jaundice noted. Course 2300: The patient was evaluated in room B01. A complete history and physical exam was performed. 2351: Patient is being transferred to [place], Heart rate at 105. 0023: I spoke to patients mother. 0100: Dr. TellezCOX MONETT hospitalist is evaluate the patient for further m anagement. Dr. Hernandez is at bedside from ICU. Administered Medications Albuterol (Duoneb) 3 ml NEB Q2H PRN PRN Reason: dyspnea Stop: 12/29/18 01:34 Last Admin: 11/29/18 07:38 Dose: 3 ml Documented by: [id number] Methylprednisolone 60 mg/ (Syringe) 0.96 mls @ 1.5 mls/min IV Q6 REJI Stop: 12/29/18 05:59 Last Admin: 11/29/18 05:44 Dose: 1.5 mls/min Documented by: [id number] Fentanyl Citrate (Fentanyl Drip) 1,250 mcg in 250 mls @ 5 mls/hr IV .Q24H PRN; Protocol PRN Reason: TITRATE Stop: 12/13/18 01:38 Last Titration: 11/29/18 07:11 Dose: 25 mcg/hr, 5 mls/hr Documented by: [id number] Cosigned by: [id number] Admin: 11/29/18 02:15 Dose: 25 mcg/hr, 5 mls/hr Documented by: [id number] Cosigned by: [id number] Midazolam HCl (Versed) 125 mg in 250 mls @ 8 mls/hr IV .Q24H PRN; Protocol PRN Reason: TITRATE Stop: 12/29/18 01:38 Last Titration: 11/29/18 07:11 Dose: 4 mg/hr, 8 mls/hr Documented by: [id number] Cosigned by: [id number] Titration: 11/29/18 04:00 Dose: 4 mg/hr, 8 mls/hr Documented by: [id number] Admin: 11/29/18 02:13 Dose: 2 mg/hr, 4 mls/hr Documented by: [id number] Cosigned by: [id number] Ranitidine HCl 50 mg/ Dextrose 102 mls @ 200 mls/hr IV Q8H [facility] Stop: 12/29/18 01:59 Last Infusion: 11/29/18 02:46 Dose: 0 mls/hr Documented by: [id number] Admin: 11/29/18 02:15 Dose: 200 mls/hr Documented by: [id number] Parenteral Electrolytes (Normosol-R) 1,000 mls @ 125 mls/hr IV .Q8H REJI Stop: 12/29/18 03:59 Last Admin: 11/29/18 04:18 Dose: 125 mls/hr Documented by: [id number] Potassium Chloride (K Neto / Wtr) 20 meq in 100 mls @ 50 mls/hr IV Q2H [facility] Stop: 11/29/18 11:14 Last Admin: 11/29/18 07:49 Dose: 50 mls/hr Documented by: [id number] Discontinued Medications Dopamine HCl/Dextrose (Dopamine / D5w) Confirm Administered Dose 400 mg IV .STK- MED ONE Stop: 11/28/18 23:16 Last Admin: 11/29/18 00:37 Dose: Not Given Documented by: [id number] Sodium Chloride (Nss 1000ml) 1,000 mls @ 999 mls/hr IV .Q1H1M REJI Stop: 11/29/18 00:30 Last Infusion: 11/29/18 00:10 Dose: 0 mls/hr Documented by: [id number] Admin: 11/28/18 23:10 Dose: 999 mls/hr Documented by: [id number] Levetiracetam 1,000 mg/ (Dextrose) 110 mls @ 440 mls/hr IV NOW STA Stop: 11/29/18 00:29 Last Infusion: 11/29/18 00:54 Dose: 0 mls/hr Documented by: [id number] Admin: 11/29/18 00:39 Dose: 440 mls/hr Documented by: [id number] Sodium Chloride (Nss 1000ml) 1,000 mls @ 200 mls/hr IV .Q5H REJI Stop: 12/29/18 01:34 Last Admin: 11/29/18 02:15 Dose: Not Given Documented by: [id number] Potassium Chloride (K Neto / Wtr) 20 meq in 100 mls @ 50 mls/hr IV ONE ONE Stop: 11/29/18 05:12 Last Infusion: 11/29/18 06:18 Dose: 0 mls/hr Documented by: [id number] Admin: 11/29/18 04:18 Dose: 50 mls/hr Documented by: [id number] Lorazepam (Ativan) Confirm Administered Dose 2 mg .ROUTE .STK-MED ONE Stop: 11/29/18 00:50 Last Admin: 11/29/18 01:00 Dose: 2 mg Documented by: [id number] Magnesium Sulfate/Dextrose (Magnesium Sulfate / D5w) Confirm Administered Dose 1 gm IV .STK-MED ONE Stop: 11/28/18 23:10 Last Admin: 11/28/18 23:10 Dose: 1 gm Documented by: [id number] Methylprednisolone (Solumedrol) Confirm Administered Dose 125 mg .ROUTE .STK-MED ONE Stop: 11/28/18 23:10 Last Admin: 11/28/18 23:10 Dose: 125 mg Documented by: [id number] Miscellaneous () Confirm Administered Dose 1 ea .ROUTE .STK-MED ONE Stop: 11/28/18 23:27 Last Admin: 11/28/18 23:26 Dose: Not Given Documented by: [id number] Perflutren Lipid Microsphere (Definity) 2 ml IV ONCE ONE Stop: 11/29/18 07:02 Last Admin: 11/29/18 07:01 Dose: 2 ml Documented by: [id number] Potassium Chloride (K Neto / Wtr) Confirm Administered Dose 10 meq IV .STK-MED ONE Stop: 11/28/18 23:46 Last Admin: 11/28/18 23:46 Dose: 10 meq Documented by: [id number] Propofol (Diprivan) Confirm Administered Dose 1,000 mg IV .STK-MED ONE Stop: 11/28/18 23:26 Last Admin: 11/28/18 23:31 Dose: 1,000 mg Documented by: [id number] Cosigned by: [id number] Medical Decision Making Differential Diagnosis Differential diagnosis: Etiologies such as cardiac ischemia, cardiac tamponade, dysrhythmia, aortic dissection, pulmonary embolism, trauma, tension pneumothorax, acute respiratory failure, electrolyte abnormality, acidosis, toxic ingestion, hypothermia, hypovolemia, intracranial event, as well as others were entertained. Medical Records Attestation: I reviewed the patient's medical records. Home Medications Current Medication List: was personally reviewed by me Laboratory Data Attestation: I reviewed the patient's lab results. Result diagrams: 11/29/18 05:40 11/29/18 05:40 Lab Results 11/28/18 11/28/18 11/28/18 Range/Units 23:17 23:23 23:23 WBC 11.24 H (4.8-10.8) K/uL RBC 4.63 L (4.7-6.1) M/uL Hgb 13.4 L (14.0-18.0) g/dL POC Hgb 12.9 L (14.0-18.0) g/dl Hct 40.9 L (42-52) % POC Hct 38 L (42-52) % MCV 88.3 (80-100) fL MCH 28.9 (25-34) pg MCHC 32.8 (32-36) g/dL RDW Std Deviation 42.1 (36.4-46.3) fL RDW Coeff of Bobbi 13.0 (11.5-14.5) % Plt Count 166 (130-400) K/uL MPV 10.9 H (7.4-10.4) fL Immature Gran % (Auto) 2.8 % Neut % (Auto) 29.2 % Lymph % (Auto) 56.4 % Kimble % (Auto) 6.7 % Eos % (Auto) 4.5 % Baso % (Auto) 0.4 % Immature Gran # (Auto) 0.31 H (0.00-0.02) K/uL Neut # (Auto) 3.28 (1.4-6.5) K/uL Lymph # (Auto) 6.34 H (1.2-3.4) K/uL Kimble # (Auto) 0.75 H (0.11-0.59) K/uL Eos # (Auto) 0.51 H (0-0.5) K/uL Baso # (Auto) 0.05 (0-0.2) K/uL Echinocytes 1+ PT 12.7 H (9.0-12.0) Seconds INR 1.3 H (0.9-1.1) APTT 20.6 L (21.0-31.0) Seconds PTT Ratio 0.8 POC pH 6.98 L* (7.35-7.45) POC pCO2 > 115 H (35-46) mmHg POC pO2 313 H (80-95) mmHg POC HCO3 29 H (19-24) asuncion/L POC Total CO2 33 H (24-31) mEq/l POC Base Excess -3.0 (-9-1.8) asuncion/L POC Sodium 144 (135-144) mEq/L Sodium (136-145) mmol/L POC Potassium 3.0 L (3.3-5.0) mEq/L Potassium (3.5-5.1) mmol/L POC Chloride (101-112) mEq/L Chloride (98-107) mmol/L Carbon Dioxide (21-32) mmol/L Anion Gap (3-11) POC Anion Gap (16-25) mmol/L POC BUN (7-18) mg/dl BUN (7-18) mg/dl Creatinine (0.6-1.4) mg/dl POC Creatinine (0.6-1.3) mg/dl Est Cr Clr Drug Dosing Est GFR ( Amer) Est GFR (Non-Af Amer) BUN/Creatinine Ratio (10-20) Glucose (70-99) mg/dl POC Glucose (other) (70-99) mg/dl Lactate (0.4-2.0) mmol/L Calcium (8.5-10.1) mg/dl POC Ioniz Calcium Sherif (1.12-1.32) mmol/l Magnesium (1.8-2.4) mg/dl Total Bilirubin (0.2-1) mg/dl AST (15-37) U/L ALT (12-78) U/L Alkaline Phosphatase (45-117) U/L Total Creatine Kinase (39-308) U/L Troponin I (0-0.045) ng/ml Total Protein (6.4-8.2) gm/dl Albumin (3.4-5.0) gm/dl Globulin (2.5-4.0) gm/dl Albumin/Globulin Ratio (0.9-2) Lipase (73-393) U/L Urine Opiates Screen (Neg) Ur Methadone, Qual (Neg) Urine Barbiturates (Neg) Ur Phencyclidine (PCP) (Neg) U Amphetamin/Meth Scrn (Neg) MDMA (Ecstasy) Screen (Neg) U Benzodiazepines Scrn (Neg) Ur Cocaine Metabolite (Neg) U Marijuana (THC) Screen (Neg) Blood Type Antibody Screen 11/28/18 11/28/18 11/28/18 Range/Units 23:23 23:23 23:23 WBC (4.8-10.8) K/uL RBC (4.7-6.1) M/uL Hgb (14.0-18.0) g/dL POC Hgb (14.0-18.0) g/dl Hct (42-52) % POC Hct (42-52) % MCV (80-100) fL MCH (25-34) pg MCHC (32-36) g/dL RDW Std Deviation (36.4-46.3) fL RDW Coeff of Bbobi (11.5-14.5) % Plt Count (130-400) K/uL MPV (7.4-10.4) fL Immature Gran % (Auto) % Neut % (Auto) % Lymph % (Auto) % Kimble % (Auto) % Eos % (Auto) % Baso % (Auto) % Immature Gran # (Auto) (0.00-0.02) K/uL Neut # (Auto) (1.4-6.5) K/uL Lymph # (Auto) (1.2-3.4) K/uL Kimble # (Auto) (0.11-0.59) K/uL Eos # (Auto) (0-0.5) K/uL Baso # (Auto) (0-0.2) K/uL Echinocytes PT (9.0-12.0) Seconds INR (0.9-1.1) APTT (21.0-31.0) Seconds PTT Ratio POC pH (7.35-7.45) POC pCO2 (35-46) mmHg POC pO2 (80-95) mmHg POC HCO3 (19-24) asuncion/L POC Total CO2 (24-31) mEq/l POC Base Excess (-9-1.8) asuncion/L POC Sodium (135-144) mEq/L Sodium 142 (136-145) mmol/L POC Potassium (3.3-5.0) mEq/L Potassium 3.5 (3.5-5.1) mmol/L POC Chloride (101-112) mEq/L Chloride 99 (98-107) mmol/L Carbon Dioxide 25 (21-32) mmol/L Anion Gap 18.0 H (3-11) POC Anion Gap (16-25) mmol/L POC BUN (7-18) mg/dl BUN 20 H (7-18) mg/dl Creatinine 2.14 H (0.6-1.4) mg/dl POC Creatinine (0.6-1.3) mg/dl Est Cr Clr Drug Dosing Not Reportable Est GFR ( Amer) 49.1 Est GFR (Non-Af Amer) 42.4 BUN/Creatinine Ratio 9.3 L (10-20) Glucose 241 H (70-99) mg/dl POC Glucose (other) (70-99) mg/dl Lactate 12.0 H* (0.4-2.0) mmol/L Calcium 13.5 H* (8.5-10.1) mg/dl POC Ioniz Calcium Sherif (1.12-1.32) mmol/l Magnesium 3.8 H (1.8-2.4) mg/dl Total Bilirubin 0.5 (0.2-1) mg/dl AST 57 H (15-37) U/L ALT 29 (12-78) U/L Alkaline Phosphatase 63 (45-117) U/L Total Creatine Kinase 470 H (39-308) U/L Troponin I < 0.015 (0-0.045) ng/ml Total Protein 5.7 L (6.4-8.2) gm/dl Albumin 3.0 L (3.4-5.0) gm/dl Globulin 2.7 (2.5-4.0) gm/dl Albumin/Globulin Ratio 1.1 (0.9-2) Lipase 61 L (73-393) U/L Urine Opiates Screen (Neg) Ur Methadone, Qual (Neg) Urine Barbiturates (Neg) Ur Phencyclidine (PCP) (Neg) U Amphetamin/Meth Scrn (Neg) MDMA (Ecstasy) Screen (Neg) U Benzodiazepines Scrn (Neg) Ur Cocaine Metabolite (Neg) U Marijuana (THC) Screen (Neg) Blood Type O Positive Antibody Screen NEGATIVE 11/28/18 11/28/18 Range/Units 23:34 23:50 WBC (4.8-10.8) K/uL RBC (4.7-6.1) M/uL Hgb (14.0-18.0) g/dL POC Hgb 12.9 L (14.0-18.0) g/dl Hct (42-52) % POC Hct 38 L (42-52) % MCV (80-100) fL MCH (25-34) pg MCHC (32-36) g/dL RDW Std Deviation (36.4-46.3) fL RDW Coeff of Bobbi (11.5-14.5) % Plt Count (130-400) K/uL MPV (7.4-10.4) fL Immature Gran % (Auto) % Neut % (Auto) % Lymph % (Auto) % Kimble % (Auto) % Eos % (Auto) % Baso % (Auto) % Immature Gran # (Auto) (0.00-0.02) K/uL Neut # (Auto) (1.4-6.5) K/uL Lymph # (Auto) (1.2-3.4) K/uL Kimble # (Auto) (0.11-0.59) K/uL Eos # (Auto) (0-0.5) K/uL Baso # (Auto) (0-0.2) K/uL Echinocytes PT (9.0-12.0) Seconds INR (0.9-1.1) APTT (21.0-31.0) Seconds PTT Ratio POC pH (7.35-7.45) POC pCO2 (35-46) mmHg POC pO2 (80-95) mmHg POC HCO3 (19-24) asuncion/L POC Total CO2 25 (24-31) mEq/l POC Base Excess (-9-1.8) asuncion/L POC Sodium 139 (135-144) mEq/L Sodium (136-145) mmol/L POC Potassium 3.3 (3.3-5.0) mEq/L Potassium (3.5-5.1) mmol/L POC Chloride 98 L (101-112) mEq/L Chloride (98-107) mmol/L Carbon Dioxide (21-32) mmol/L Anion Gap (3-11) POC Anion Gap 21.0 (16-25) mmol/L POC BUN 21 H (7-18) mg/dl BUN (7-18) mg/dl Creatinine (0.6-1.4) mg/dl POC Creatinine 2.1 H (0.6-1.3) mg/dl Est Cr Clr Drug Dosing Est GFR ( Amer) Est GFR (Non-Af Amer) BUN/Creatinine Ratio (10-20) Glucose (70-99) mg/dl POC Glucose (other) 247 H (70-99) mg/dl Lactate (0.4-2.0) mmol/L Calcium (8.5-10.1) mg/dl POC Ioniz Calcium Sherif 1.70 H* (1.12-1.32) mmol/l Magnesium (1.8-2.4) mg/dl Total Bilirubin (0.2-1) mg/dl AST (15-37) U/L ALT (12-78) U/L Alkaline Phosphatase (45-117) U/L Total Creatine Kinase (39-308) U/L Troponin I (0-0.045) ng/ml Total Protein (6.4-8.2) gm/dl Albumin (3.4-5.0) gm/dl Globulin (2.5-4.0) gm/dl Albumin/Globulin Ratio (0.9-2) Lipase (73-393) U/L Urine Opiates Screen Neg (Neg) Ur Methadone, Qual Neg (Neg) Urine Barbiturates Neg (Neg) Ur Phencyclidine (PCP) Neg (Neg) U Amphetamin/Meth Scrn Neg (Neg) MDMA (Ecstasy) Screen Neg (Neg) U Benzodiazepines Scrn Neg (Neg) Ur Cocaine Metabolite Neg (Neg) U Marijuana (THC) Screen Neg (Neg) Blood Type Antibody Screen Imaging Data Attestation: I personally reviewed and interpreted this imaging study as follows: My Impression: Chest X-ray showed an endotracheal tube in place, no pneumonia, no pneumothorax, and no congestion. Radiologist's Impression: Radiology results as stated below per my review and the radiologist's interpretation: CT HEAD No ICH, mass effect or edema. No evidence of acute cortical stroke. No midline shift or hydrocephalus. Visualized sinuses show mid scattered mucosal thickening and air cells are mindi ar. CT CHEST without contrast Transesophageal catheter tip is at the midpoint of the stomach. No pleural effusion or pneumothorax. No hilar or mediastinal enlargement. No cardiomegaly or pericardial effusion. No other acute or inflammatory disease. CT abdomen and PELVIS without contrast Fluid within nondistended loops of small bowel and within stomach without bowel wall thickening or surrounding inflammation can be normal or can be seen with gastroenteritis in the right clinical setting. No appendicitis, inflammatory changes of bowel or bowel obstruction. No free fluid. No free air. ECG Data Attestation: I personally reviewed and interpreted this ECG as follows: Indication: other (cardiac arrest ) Rate (beats per minute): 93 Rhythm: normal sinus Findings: no ST depression and no ST elevation Blood Pressure Blood Pressure Findings: Elevated blood pressure Blood Pressure Disposition: further management by hospitalist PEPE Martinez This is a 23-year-old male who presents emergency department after a cardiac arrest. Upon arrival to the emergency department the patient is intubated. He has a large amount of wheezing bilaterally in his chest. Because of this the patient's chest was manually decompressed. Repeat examination revealed improvement in the patient's blood pressure and heart rate. He was given bicarbonate here in the emergency department along with epinephrine. He was started on a 2 L bolus of fluid. Patient's lactate was found to be grossly elevated. The patient's kidney function is also not great at 2.2. EKG does not show any evidence of STEMI. I did discuss the case with the hospitalist service as well as the ham curer who agreed to admit the patient. Cooling protocol was initiated here in the emergency department. Impression & Plan Cardiac arrest with successful resuscitation, ARF (acute renal failure) Critical Care Time Critical Care Time: Yes Total Critical Care Time: 90 I have personally spent 90 minutes of critical care time in the direct management of this patient. This includes bedside care, interpretation of diagnostic studies, and testing, discussion with consultants, patient, and family members, and other required patient management activities. This 90 minutes is in excess of all separately billable procedures. Discharge Plan Visit Data *Final* Discharge Date/Time: 11/29/18 01:15 Chief Complaint: Cardiac Arrest/CPR Stated Complaint: POST CARDIAC ARREST ED Provider: Mj Manuel Discharge Problem: Cardiac arrest with successful resuscitation, ARF (acute renal failure) Patient Disposition: Admitted As Inpatient Discharge Instructions Interventions: ED Discharge Assessment Last Done: 11/29/18 01:15 Discharge Problem: ARF (acute renal failure) Qualifiers: Acute renal failure type: unspecified Qualified Code(s): N17.9 - Acute kidney failure, unspecified The scribe's documentation has been prepared under my direction and personally r eviewed by me in its entirety. I confirm that the note above accurately reflects all work, treatment, procedures, and medical decision making performed by me.
[2018-11-29] MEDS ORDERED: MANNITOL 20% 350 ML IV ONE (08:30)
--- NOTE | 2018-11-29 08:35 | Procedure Note ---
EEG Procedure Note Date of Service November 29, 2018 Start / End Times Start Time: 0802 End Time: 08 Referring Physician Marc Hernandez PA-C History 23-year-old with cardiac arrest with possible ascending aortic dissection. Home Medication List Home Medications Medication Instructions Recorded Confirmed Type albuterol sulfate 1 - 2 puff INH DIRECTED PRN 11/28/18 11/28/18 History Inpatient Medication List Albuterol (Duoneb) 3 ml NEB Q2H PRN PRN Reason: dyspnea Stop: 12/29/18 01:34 Last Admin: 11/29/18 07:38 Dose: 3 ml Documented by: [id number] Methylprednisolone 60 mg/ (Syringe) 0.96 mls @ 1.5 mls/min IV Q6 REJI Stop: 12/29/18 05:59 Last Admin: 11/29/18 05:44 Dose: 1.5 mls/min Documented by: [id number] Fentanyl Citrate (Fentanyl Drip) 1,250 mcg in 250 mls @ 5 mls/hr IV .Q24H PRN; Protocol PRN Reason: TITRATE Stop: 12/13/18 01:38 Last Titration: 11/29/18 07:11 Dose: 25 mcg/hr, 5 mls/hr Documented by: [id number] Cosigned by: [id number] Admin: 11/29/18 02:15 Dose: 25 mcg/hr, 5 mls/hr Documented by: [id number] Cosigned by: [id number] Midazolam HCl (Versed) 125 mg in 250 mls @ 8 mls/hr IV .Q24H PRN; Protocol PRN Reason: TITRATE Stop: 12/29/18 01:38 Last Titration: 11/29/18 07:11 Dose: 4 mg/hr, 8 mls/hr Documented by: [id number] Cosigned by: [id number] Titration: 11/29/18 04:00 Dose: 4 mg/hr, 8 mls/hr Documented by: [id number] Admin: 11/29/18 02:13 Dose: 2 mg/hr, 4 mls/hr Documented by: [id number] Cosigned by: [id number] Ranitidine HCl 50 mg/ Dextrose 102 mls @ 200 mls/hr IV Q8H REJI Stop: 12/29/18 01:59 Last Infusion: 11/29/18 02:46 Dose: 0 mls/hr Documented by: [id number] Admin: 11/29/18 02:15 Dose: 200 mls/hr Documented by: [id number] Parenteral Electrolytes (Normosol-R) 1,000 mls @ 125 mls/hr IV .Q8H REJI Stop: 12/29/18 03:59 Last Admin: 11/29/18 04:18 Dose: 125 mls/hr Documented by: [id number] Potassium Chloride (K Neto / Wtr) 20 meq in 100 mls @ 50 mls/hr IV Q2H REJI Stop: 11/29/18 11:14 Last Admin: 11/29/18 07:49 Dose: 50 mls/hr Documented by: [id number] Mannitol (Mannitol 20%) 350 mls @ 350 mls/hr IV .Q1H ONE Stop: 11/29/18 09:29 Last Admin: 11/29/18 08:31 Dose: 350 mls/hr Documented by: [id number] Discontinued Medications Dopamine HCl/Dextrose (Dopamine / D5w) Confirm Administered Dose 400 mg IV .STK- MED ONE Stop: 11/28/18 23:16 Last Admin: 11/29/18 00:37 Dose: Not Given Documented by: [id number] Sodium Chloride (Nss 1000ml) 1,000 mls @ 999 mls/hr IV .Q1H1M REJI Stop: 11/29/18 00:30 Last Infusion: 11/29/18 00:10 Dose: 0 mls/hr Documented by: [id number] Admin: 11/28/18 23:10 Dose: 999 mls/hr Documented by: [id number] Levetiracetam 1,000 mg/ (Dextrose) 110 mls @ 440 mls/hr IV NOW STA Stop: 11/29/18 00:29 Last Infusion: 11/29/18 00:54 Dose: 0 mls/hr Documented by: [id number] Admin: 11/29/18 00:39 Dose: 440 mls/hr Documented by: [id number] Sodium Chloride (Nss 1000ml) 1,000 mls @ 200 mls/hr IV .Q5H REJI Stop: 12/29/18 01:34 Last Admin: 11/29/18 02:15 Dose: Not Given Documented by: [id number] Potassium Chloride (K Neto / Wtr) 20 meq in 100 mls @ 50 mls/hr IV ONE ONE Stop: 11/29/18 05:12 Last Infusion: 11/29/18 06:18 Dose: 0 mls/hr Documented by: [id number] Admin: 11/29/18 04:18 Dose: 50 mls/hr Documented by: [id number] Lorazepam (Ativan) Confirm Administered Dose 2 mg .ROUTE .STK-MED ONE Stop: 11/29/18 00:50 Last Admin: 11/29/18 01:00 Dose: 2 mg Documented by: [id number] Magnesium Sulfate/Dextrose (Magnesium Sulfate / D5w) Confirm Administered Dose 1 gm IV .STK-MED ONE Stop: 11/28/18 23:10 Last Admin: 11/28/18 23:10 Dose: 1 gm Documented by: [id number] Methylprednisolone (Solumedrol) Confirm Administered Dose 125 mg .ROUTE .STK-MED ONE Stop: 11/28/18 23:10 Last Admin: 11/28/18 23:10 Dose: 125 mg Documented by: [id number] Miscellaneous () Confirm Administered Dose 1 ea .ROUTE .STK-MED ONE Stop: 11/28/18 23:27 Last Admin: 11/28/18 23:26 Dose: Not Given Documented by: [id number] Perflutren Lipid Microsphere (Definity) 2 ml IV ONCE ONE Stop: 11/29/18 07:02 Last Admin: 11/29/18 07:01 Dose: 2 ml Documented by: [id number] Potassium Chloride (K Neto / Wtr) Confirm Administered Dose 10 meq IV .STK-MED ONE Stop: 11/28/18 23:46 Last Admin: 11/28/18 23:46 Dose: 10 meq Documented by: [id number] Propofol (Diprivan) Confirm Administered Dose 1,000 mg IV .STK-MED ONE Stop: 11/28/18 23:26 Last Admin: 11/28/18 23:31 Dose: 1,000 mg Documented by: [id number] Cosigned by: [id number] Description This is a 21 electrode EEG with a single channel dedicated to limited EKG. The electrodes were placed in accordance with the International 10-20 system. Interpretation The predominant background activity consists of irregular 9 Hz activity, of up to 15 microvolts in amplitude,seen symmetrically distributed over all head regions bilaterally, diffusely. Most of the activity was less than 15 microvolts however. There was no change in the background activity with any alerting procedures. Very low-amplitude fast activity was seen superimposed over all head regions with some greater amplitude at the F8. There was no movement artifact otherwise, but this is diffuse persistent fast activity did hinder interpretation the background from time to time throughout the recording. Photic stimulation was performed and elicited no change in the background activity and no abnormal responses were seen. Hyperventilation was not performed on this bedside ICU EEG. Throughout this recording, I could not detect any focal abnormalities or any potentially epileptogenic discharges. In summary, this EEG is abnormal and shows evidence for generalized significant suppression of background activity. However, it was not flat. No focal abnormalities or potentially epileptogenic discharges were seen. Clinical Correlation Abnormalities such as seen in this EEG correlate with severe encephalopathy, consistent with his global hypoxic ischemic event.
[2018-11-29] MEDS ORDERED: HEPARIN SOD 5,000 UNIT/0.5 ML VIAL SQ SCH (09:00)
[2018-11-29] MEDS ORDERED: CALCIUM CHLORIDE 10% 10 ML SYR IV ONE (11:04)
[2018-11-29] MEDS ORDERED: SODIUM BICARB 8.4% INJ 50 MEQ/50 ML SYR IV ONE (11:04)
--- NOTE | 2018-11-29 11:28 | Discharge Summary ---
Date of Service November 29, 2018 Admission HPI Per Admitting Provider The patient is a 23-year-old male with a past medical history of asthma, who had collapsed outside the entrance to [facility] earlier this evening. CPR was reportedly begun by police, until EMS arrived. EMS reports that the patient was found to be and PEA rhythm, he was intubated in the field, received 3 rounds of epinephrine 1 mg IV while undergoing CPR, did not receive any shocks, and was transported to the emergency department with advanced notice for [facility] [place]. Upon arrival in the ED, the patient was noted to have a pulse and blood pressure of 77/50'. He was coded at that time, underwent appropriate sequencing of medications, laboratories and imaging, and mechanical ventilation. He was then transported to the CT scanner, with CT of head, chest, abdomen and pelvis were all read as normal by [facility]. The patient was then transported to the ICU for ongoing care. The patient did not have return of consciousness, but did have ROSC. Admission Exam Per Admitting Provider The patient is unresponsive well developed and well nourished, normocephalic and atraumatic, intubated, bagged upon arrival, and then placed on ventilator. HEENT--PERRL, EOMI, mucous membranes and oropharynx dry. Neck--No JVD. No bruits. Thyroid normal, trachea midline, no adenopathy. Heart--tachycardic. Normal S1 and S2. No murmurs, rubs or gallops. Lungs--decreased breath sounds throughout. Abdomen--normal bowel sounds and soft. Nontender. Nondistended. Extremities--no cyanosis or clubbing. No edema. There are good distal pulses b/l. Dermatologic--normal skin turgor, normal color, no abnormal lymph nodes, no rash. Neurologic--cranial nerves II through XII grossly intact. Rheumatologic--limited exam Psychiatric--unresponsive and intubated. Principal Diagnosis s/p cardiac arrest, aortic dissection Discharge Exam Patient was transferred to [facility] before being examined by myself or Dr. Mera. See Marc Hernandez PA-C's note for details on examination. Discharge Data Allergies Allergy/AdvReac Type Severity Reaction Status Date / Time No Known Allergies Allergy Unverified 11/29/18 06:53 Consultations 11/29/18 00:12 Consult Examining Officer Stat ED Decision to Admit Stat 11/29/18 01:35 Consult Case Management - Discharge Planning Routine Consult Examining Officer Routine 11/29/18 02:18 Consult Cardiology Routine 11/29/18 08:05 Burn CD for patient Stat Ordered Studies 11/28/18 23:31 CT head/brain wo con Urgent 11/28/18 23:39 CT abd pelvis wo con Urgent CT chest wo con Urgent 11/28/18 23:56 US point of care ultrasound Urgent 11/29/18 04:16 US venous doppler [facility] Urgent Hospital Course (1) Ascending aortic dissection: Tomer Syed is a 23 year old male with a past medical history of asthma who was admitted to the ICU following cardiac arrest. He was found to have PEA. He was intubated in the field, received 3 rounds of epinephrine 1 mg IV while undergoing CPR, did not receive any shocks, and was transported to the emergency department with advanced notice for [employer] [place]. Upon arrival in the ED, he had a pulse and blood pressure of 77/50. He was coded at that time. While he did achieve ROSC, he did not have return of consciousness. He underwent placement of a right sided femoral central line and arterial line. Therapeutic hypothermia was initiated and he was then transported to the ICU for further care. He remained hemodynamically stable and did not require the use of pressors. His presentation suggested cardiac arrest secondary to respiratory arrest, given collateral history obtained suggested he was short of breath prior to his collapse. He was loaded with keppra for seizure prevention, and sedated with fentanyl and Versed. The CT of his brain revealed partial loss of overton-white differentiation, concerning for hypoxic brain injury, and unfortunately his EEG was abnormal, showing evidence of generalized significant suppression of background activity, consistent with severe encephalopathy. His CT chest revealed extensive bronchial wall thickening, most severe in the lower lobes with subsegmental endobronchial debris. He underwent an ECHO this AM, which was concerning for an ascending aortic dissection, and as such, was emergently transferred to [facility] via [facility]. I was not directly involved in the care of this patient - please see Marc Hernandez PA-C's progress note for further details. (2) ARF (acute renal failure): (3) Cardiac arrest with successful resuscitation: (4) Acute respiratory failure with hypoxia and hypercapnia: (5) On mechanically assisted ventilation: (6) Asthma: (7) Acute kidney injury: (8) Admitted to intensive care unit: Total Time Total Time Spent Total Time Spent (In Minutes): 30 Discharge Plan Discharge Items Patient Disposition: Transfer Acute Care Hospital Reason For Visit: POST CARDIAC ARREST Discharge Diagnosis: Aortic Dissection, Cardiac Arrest Discharge Goals: Improve disease control Activity: Resume your previous activity Non-emergency contact: Primary Care Provider Call non-emergency contact if: you have any medication questions Follow-up/Referrals: PCP,NO [Primary Care Provider] - Diet: Regular Addtl Provider Instructions: Tomer is being transferred to [facility] for a higher level of care given the concern about aortic dissection seen on the ultrasound of his heart. Prescriptions: Continued albuterol sulfate 90 mcg/actuation HFA aerosol inhaler 1 - 2 puff INH DIRECTED PRN (Reason: shortness of breath or wheezing) RF: 0 Stand-Alone Forms: My [facility] Discharge Orders: Discharge Order (Routine); Ordered 11/29/18 Ordered By: Wendi Tellez Admission Data Admit Date/Time: 11/29/18 00:15 Attending Provider: Lee Low Admit Provider: Kvng Tellez Primary Care Provider: PCP,NO Other Providers: Candace Mera ; Kvng Tellez ; David Carter Service: Intensive Care Unit Other Interventions: Discharge Summary Assessment (RN) Last Done: 11/29/18 09:27 DC Date/Time DO NOT enter until pt leaves facility: 11/29/18 11:05 Supervising Physician Co-Signing Physician Notes This note was cosigned, I did not evaluate or see the patient, it was part of cosigning the discharge summary on the patient who has been already transferred to a tertiary care center. Patient is not seen, case discussed and reviewed with the staff. Resident Activity Tracking Resident Involvement: Resident Care Provided Care Provided: Adult Hospital Medicine
[2018-11-29 11:48] LABS: iSTAT Arterial Blood Gas pCO2 45 mmHg (35-46); iSTAT Arterial Blood Gas pH 7.27 (7.35-7.45); iSTAT Hematocrit 35 % (42-52); iSTAT Sodium 141 mEq/L (135-144)
[2018-11-29 11:49] LABS: iSTAT Arterial Bld Gas O2 Sat 100; iSTAT Arterial Blood Gas HCO3 21 meg/L (19-24); iSTAT Carbon Dioxide 22 mEq/l (24-31); iSTAT Sample Type Arterial
[2018-11-29] MEDS ORDERED: PNEUMOCOCCAL ADMINISTRATION CHARGE ONE (21:00)
[2018-11-29] MEDS ORDERED: PNEUMOCOCCAL POLYSACCHARIDES 25 MCG/0.5 ML VIAL/SYR IM ONE (21:00)
--- NOTE | 2018-11-30 00:24 | Progress Note ---
Date of Service November 30, 2018 I was notified as the on-call overnight physician earlier this evening that the patient had a single positive blood culture. I was able to review his record. Patient was treated in the emergency department and then the ICU prior to his transfer to [place]. The patient was never actively seen by the hospitalist service. I discussed this lab finding with Marc Hernandez PA-C (ICU) who kindly stated he would contact [place] to let them know about this result. Lala Tucker, PGY3 Overnight call
--- NOTE | 2018-11-30 00:32 | Critical Care Progress Note ---
Date of Service November 30, 2018 Subjective Overnight resident informed me of positive blood cultures x1 from labs drawn yesterday. I did reach out to [facility]. I forwarded results to patient's nurse, Jacki. They had drawn their own cultures as well.
--- NOTE | 2018-12-12 | Cardiology Consultation ---
Date of Consultation December 11, 2018 History of Present Illness Attending Physician: Lee Low DO History of Present Illness Patient transferred out by helicopter before seen. No consult performed. Allergies Allergy/AdvReac Type Severity Reaction Status Date / Time No Known Allergies Allergy Unverified 11/29/18 06:53 Home Medications Home Medications Medication Instructions Recorded Confirmed Type albuterol sulfate 1 - 2 puff INH DIRECTED PRN 11/28/18 11/28/18 History Patient History Medical History No pertinent past medical history Family History Other No pertinent family history in first degree relatives Social History Preferred Language: Urdu Communication Ability: Unrespons. Beliefs That Will Affect Care: None Current Living Situation: Other Current Living Situation Comment: Apartment with colleauges Feels Safe at Home: Yes Smoking Status: Former smoker Second Hand Exposure: No Hx Alcohol Use: Yes Hx Substance Use: No
== END 2018-11-29 11:05 | disposition short-term general hospital (02) | DRG 296 ==
LOC: ED 23:05 → SUATTDRO 11-29 00:15 → 1E 11-29 00:15